=== PATIENT | female | born 1985 ===

== ENCOUNTER 2017-04-23 18:16 | Inpatient (IN) | payer MEDICAID ==
--- NOTE | 2017-04-23 18:52 | ED PDOC ---
HPI: Psych/Substance Abuse Time Seen by Provider: 04/23/17 18:30 Chief Complaint (Nursing): Psychiatric Evaluation Chief Complaint (Provider): Psychiatric evaluation History Per: Patient History/Exam Limitations: no limitations Onset/Duration Of Symptoms: Days (x2 weeks) Current Symptoms Are (Timing): Still Present Suicide/Self Injury Attempted (Context): None Pain Scale Rating Of: 0 Associated Symptoms: Depression, Suicidal Thoughts, Suicidal Plan (jump in front of bus, as well as turning on the gas in house) Additional Complaint(s): Etta Culver is a 31 year old female, with no past medical history, who presents to the emergency department complaining of felling depressed, states she doesn't want to live anymore and planned to jump in front of bus as well as turning on the gas in the house. Symptoms of depression have been ongoing for the past x2 weeks. No signs of a triggering event. No further medical complaints. PMD: None provided. Past Medical History Reviewed: Historical Data, Nursing Documentation, Vital Signs Vital Signs: Last Vital Signs Temp 98.0 F 04/23/17 18:21 Pulse 112 H 04/23/17 18:21 Resp 16 04/23/17 18:21 BP 146/104 H 04/23/17 18:21 Pulse Ox 100 04/23/17 18:21 - Surgical History Other surgeries: gastric bypass - Family History Family History: States: Unknown Family Hx - Social History Current smoker - smoking cessation education provided: No Alcohol: None Drugs: Denies - Allergies Allergies/Adverse Reactions: Allergies Allergy/AdvReac Type Severity Reaction Status Date / Time No Known Allergies Allergy Verified 04/23/17 18:21 Review of Systems ROS Statement: Except As Marked, All Systems Reviewed And Found Negative Psych: Positive for: Depression, Suicidal ideation. Negative for: Other ( homicidal ideation) Physical Exam - Reviewed Nursing Documentation Reviewed: Yes Vital Signs Reviewed: Yes - Physical Exam Appears: Positive for: Non-toxic, No Acute Distress Head Exam: Positive for: ATRAUMATIC, NORMAL INSPECTION Skin: Positive for: Normal Color, Warm, Dry Eye Exam: Positive for: Normal appearance, EOMI, PERRL Neck: Positive for: Normal, Painless ROM, Supple Cardiovascular/Chest: Positive for: Regular Rate, Rhythm. Negative for: Murmur Respiratory: Positive for: Normal Breath Sounds. Negative for: Respiratory Distress Gastrointestinal/Abdominal: Positive for: Normal Exam, Soft. Negative for: Tenderness, Guarding, Rebound Extremity: Positive for: Normal ROM. Negative for: Deformity, Swelling Neurologic/Psych: Positive for: Alert, Oriented - ECG O2 Sat by Pulse Oximetry: 100 (RA) Pulse Ox Interpretation: Normal Medical Decision Making Medical Decision Making: Initial Plan: --EKG --Alcohol Serum --Comp Metabolic Panel --Drug screen, urine --Urine --Urine dipstick --CBC w/ differential --Chest portable [RAD] --1:1 Obs for suicide precaution --reevaluation Scribe Attestation: Documented by Rajiv Paz, acting as a scribe for Jeremy Alexandre MD Provider Scribe Attestation: All medical record entries made by the Scribe were at my direction and personally dictated by me. I have reviewed the chart and agree that the record accurately reflects my personal performance of the history, physical exam, medical decision making, and the department course for this patient. I have also personally directed, reviewed, and agree with the discharge instructions and disposition. Disposition - Clinical Impression Clinical Impression: Depression - Patient ED Disposition Is Patient to be Admitted: Transfer of Care - Disposition Disposition: Transfer of Care Disposition Time: 19:05 Condition: FAIR Forms: [email or web address] (Georgian) Patient Signed Over To: Edil Paulino III
--- NOTE | 2017-04-23 19:11 | ED PDOC ---
- Laboratory Results Result Diagrams: 04/23/17 19:06 04/23/17 19:06 - ECG O2 Sat by Pulse Oximetry: 100 (RA) Medical Decision Making Medical Decision Makin:00 --Patient endorsed to me by Dr. Alexandre, pending blood work and reevaluation for disposition labs reviewed revealing profound hypokalemia, which likely explains EKG findings and prolonged QTc Cipro cancelled as it can prolong QTc. Dose Ancef IV ordered for UTI. Magnesium 1.9, within normal limits. Potassium replacement initiated orally but pt refuses to take pills, states causes nausea/vomiting. LR bolus ordered, K+ 20meq IV over several hours. Admit Dr Morrell, d/w Julian Schultz for admission Julian Schultz in ED 830p Care transferred Repeat EKG 20:44 QTC 573, improved but remains prolonged Disposition - Clinical Impression Clinical Impression: Depression, Acute electrocardiogram changes, Hypokalemia - POA Present On Arrival: None - Disposition Disposition: Admitted as In-Patient Disposition Time: 20:10 Condition: FAIR Forms: [employer] (Mongolian)
[2017-04-23 19:16] LABS: BASO # 0.1 K/uL (0.0-0.2); BASO % 0.8 % (0.0-2.0); EOS % 0.1 % (0.0-4.0); HEMATOCRIT 44.3 % (34.0-47.0); LYMPH # 2.3 K/uL (1.0-4.3); LYMPH % 15.9 % (20.0-40.0); MEAN CELL VOLUME 80.4 fl (81.0-99.0); MEAN CORPUSCULAR HEMOGLOBIN 26.8 pg (27.0-31.0); MEAN CORPUSCULAR HGB CONC 33.3 g/dL (33.0-37.0); MEAN PLATELET VOLUME 8.9 fl (7.2-11.7); MONO % 6.8 % (0.0-10.0); NEUT % 76.4 % (50.0-75.0); NRBC % 0.3 % (0.0-0.0); RED CELL DISTRIBUTION WIDTH 13.6 % (11.5-14.5); WHITE BLOOD COUNT 14.5 K/uL (4.8-10.8)
[2017-04-23] MEDS ORDERED: Ciprofloxacin 400mg/200ml D5W 400 MG/200 ML BAG IVPB ONE (19:39)
[2017-04-23] MEDS: Ciprofloxacin 400mg/200ml D5W 400 MG/200 ML BAG IVPB STA ×2 (19:41→20:11)
[2017-04-23 19:44] LABS: ALB/GLOB RATIO 1.4 (1.0-2.1); ALCOHOL SERUM < 10 mg/dl (0-10); ALKALINE PHOSPHATASE 67 U/L (38-126); ALT/SGPT 53 U/L (9-52); AST/SGOT 33 U/L (14-36); BILIRUBIN,TOTAL 0.7 mg/dl (0.2-1.3); BLOOD UREA NITROGEN 7 mg/dl (7-17); CALCIUM 10.4 mg/dL (8.4-10.2); CARBON DIOXIDE 28 mmol/L (22-30); CHLORIDE 91 mmol/L (98-107); GFR AFRICAN-AMERICAN > 60; GLUCOSE,RANDOM 133 mg/dL (65-105); POTASSIUM 2.3 MMOL/L (3.6-5.0); SODIUM 136 mmol/l (132-148); TOTAL PROTEIN 7.8 G/DL (6.3-8.2)
[2017-04-23 19:45] LABS: MAGNESIUM 1.9 MG/DL (1.6-2.3); PHOSPHOROUS 2.9 mg/dl (2.5-4.5)
[2017-04-23] MEDS ORDERED: Potassium Chloride 20 mEq ER Tab PO ONE (19:46)
[2017-04-23] MEDS ORDERED: Lactated Ringer's 1,000 ML IV SCH (20:15)
[2017-04-23] MEDS ORDERED: Potassium Chloride 20 mEq/15 ml LIQ UD PO ONE (20:17)
[2017-04-23] MEDS ORDERED: ceFAZolin IV 1 gm in Dextrose 1 GM/50 ML BAG IVPB ONE (20:19)
[2017-04-23] MEDS ORDERED: Potassium CL 10 MEQ/50 ML 50 ML ONE ×2 (20:21→21:46)
[2017-04-23] MEDS: Potassium CL 10 MEQ/50 ML 50 ML IVPB SCH ×2 (20:33→21:49)
--- NOTE | 2017-04-23 21:03 | CP.PCM.HP ---
History of Present Illness - History of Present Illness History of Present Illness: pt admitted for prolonged qtc, hypokalemia, depression w/ SI. states has been vomiting on/off since having gastric bypass summer 2016. this episode lasted 1- 2 wks and at first pt was able to mela liquid but not any longer. pt has become more depressed/anxious despite being on lexapro and xanax. at present w/ SI of "jumping in front of bus" pt is on 1:1 and is for inptpsych when med cleared. initial ekg w/ qtc 600s , repeat after kcl qtc 500s. no abd pain, but has n/v at present. Present on Admission - Present on Admission Any Indicators Present on Admission: No Review of Systems - Gastrointestinal Gastrointestinal: As Per HPI, Nausea, Vomiting - Psychiatric Psychiatric: As Per HPI, Anxiety, Depression, Suicidal Ideation Past Patient History - Past Social History Alcohol: None Drugs: Denies - CARDIAC Hx Cardiac Disorders: No Hx Hypertension: No - PULMONARY Hx Tuberculosis: No - NEUROLOGICAL HX Cerebrovascular Accident: No Hx Seizures: No - HEMATOLOGICAL/ONCOLOGICAL Hx Cancer: No Hx Human Immunodeficiency Virus (HIV): No - GENITOURINARY/GYNECOLOGICAL Hx Sexually Transmitted Disorders: No - PSYCHIATRIC Hx Substance Use: No - SURGICAL HISTORY Hx Gastric Bypass Surgery: Yes (11/16) Meds Allergies/Adverse Reactions: Allergies Allergy/AdvReac Type Severity Reaction Status Date / Time No Known Allergies Allergy Verified 04/23/17 18:21 Physical Exam - Constitutional Appears: Well, Non-toxic, No Acute Distress - Head Exam Head Exam: ATRAUMATIC, NORMAL INSPECTION, NORMOCEPHALIC - Eye Exam Eye Exam: EOMI, Normal appearance, PERRL Pupil Exam: NORMAL ACCOMODATION, PERRL - ENT Exam ENT Exam: Mucous Membranes Moist, Normal Exam - Neck Exam Neck exam: Positive for: Normal Inspection - Respiratory Exam Respiratory Exam: Clear to Auscultation Bilateral, NORMAL BREATHING PATTERN - Cardiovascular Exam Cardiovascular Exam: REGULAR RHYTHM, RRR, +S1, +S2 - GI/Abdominal Exam GI & Abdominal Exam: Normal Bowel Sounds, Soft. absent: Tenderness - Extremities Exam Extremities exam: Positive for: full ROM, normal capillary refill, normal inspection, pedal pulses present - Back Exam Back exam: NORMAL INSPECTION - Neurological Exam Neurological exam: Alert, CN II-XII Intact, Normal Gait, Oriented x3, Reflexes Normal - Psychiatric Exam Psychiatric exam: Normal Affect, Normal Mood - Skin Skin Exam: Dry, Intact, Normal Color, Warm Results - Vital Signs Recent Vital Signs: Last Vital Signs Temp 98.0 F 04/23/17 18:21 Pulse 97 H 04/23/17 19:42 Resp 20 04/23/17 19:42 BP 139/81 04/23/17 19:42 Pulse Ox 100 04/23/17 20:52 - Labs Result Diagrams: 04/23/17 19:06 04/23/17 19:06 Labs: Laboratory Results - last 24 hr 04/23/17 04/23/17 04/23/17 18:45 19:06 19:06 WBC 14.5 H RBC 5.51 H Hgb 14.8 Hct 44.3 MCV 80.4 L MCH 26.8 L MCHC 33.3 RDW 13.6 Plt Count 306 MPV 8.9 Neut % (Auto) 76.4 H Lymph % (Auto) 15.9 L [place] % (Auto) 6.8 Eos % (Auto) 0.1 Baso % (Auto) 0.8 Neut # 11.0 H Lymph # 2.3 [place] # 1.0 H Eos # 0.0 Baso # 0.1 Sodium 136 Potassium 2.3 L* Chloride 91 L Carbon Dioxide 28 Anion Gap 19 BUN 7 Creatinine 0.7 Est GFR ( Amer) > 60 Est GFR (Non-Af Amer) > 60 Random Glucose 133 H Calcium 10.4 H Phosphorus Magnesium Total Bilirubin 0.7 AST 33 ALT 53 H Alkaline Phosphatase 67 Troponin I 0.0240 Total Protein 7.8 Albumin 4.6 Globulin 3.2 Albumin/Globulin Ratio 1.4 Urine Opiates Screen Negative Urine Methadone Screen Negative Ur Barbiturates Screen Negative Ur Phencyclidine Scrn Negative Ur Amphetamines Screen Negative U Benzodiazepines Scrn Positive U Oth Cocaine Metabols Negative U Cannabinoids Screen Negative Alcohol, Quantitative < 10 04/23/17 19:20 WBC RBC Hgb Hct MCV MCH MCHC RDW Plt Count MPV Neut % (Auto) Lymph % (Auto) [place] % (Auto) Eos % (Auto) Baso % (Auto) Neut # Lymph # [place] # Eos # Baso # Sodium Potassium Chloride Carbon Dioxide Anion Gap BUN Creatinine Est GFR ( Amer) Est GFR (Non-Af Amer) Random Glucose Calcium Phosphorus 2.9 Magnesium 1.9 Total Bilirubin AST ALT Alkaline Phosphatase Troponin I Total Protein Albumin Globulin Albumin/Globulin Ratio Urine Opiates Screen Urine Methadone Screen Ur Barbiturates Screen Ur Phencyclidine Scrn Ur Amphetamines Screen U Benzodiazepines Scrn U Oth Cocaine Metabols U Cannabinoids Screen Alcohol, Quantitative Assessment & Plan (1) DVT prophylaxis Assessment and Plan: scd and ae hose ambulation Status: Acute (2) Acute electrocardiogram changes Assessment and Plan: normalizign w/ kcl. repeat in am cardio likely r/t hypokalemia from n/v Status: Acute (3) Depression Assessment and Plan: ?? r/t hypokalemia/electrolyte imbalance cont home meds psych inpt admission when med cleared Status: Acute (4) Hypokalemia Assessment and Plan: given kcl and lr in er. cont lr @ 100. recheck cmp in am Status: Acute (5) Nausea & vomiting Assessment and Plan: zofran, pepcid cld adv as mela ivf Status: Acute Decision To Admit - Pt Status Changed To: Hospital Disposition Of: Inpatient - Admit Certification Admit to Inpatient:: After my assessment, the patient will require hospitalization for at least two midnights. This is because of the severity of symptoms shown, intensity of services needed, and/or the medical risk in this patient being treated as an outpatient. - . Bed Request Type: Telemetry Admitting Physician: Maida Morrell
[2017-04-23] MEDS: Lactated Ringer's 1,000 ML IV SCH (21:26)
[2017-04-24] MEDS: ceFAZolin IV 1 gm in Dextrose 1 GM/50 ML BAG IVPB SCH ×2 (00:41→09:55)
[2017-04-24 06:41] LABS: BASO % 0.4 % (0.0-2.0); EOS # 0.1 K/uL (0.0-0.7); EOS % 1.1 % (0.0-4.0); HEMATOCRIT 39.6 % (34.0-47.0); LYMPH # 2.1 K/uL (1.0-4.3); LYMPH % 20.8 % (20.0-40.0); MEAN CELL VOLUME 80.6 fl (81.0-99.0); MEAN CORPUSCULAR HGB CONC 33.5 g/dL (33.0-37.0); MONO # 0.7 K/uL (0.0-0.8); MONO % 7.4 % (0.0-10.0); NEUT % 70.3 % (50.0-75.0); NRBC % 0.3 % (0.0-0.0); RED CELL DISTRIBUTION WIDTH 13.6 % (11.5-14.5); WHITE BLOOD COUNT 9.9 K/uL (4.8-10.8)
[2017-04-24 07:12] LABS: ALB/GLOB RATIO 1.4 (1.0-2.1); ALKALINE PHOSPHATASE 52 U/L (38-126); ALT/SGPT 47 U/L (9-52); AST/SGOT 28 U/L (14-36); BILIRUBIN,TOTAL 0.7 mg/dl (0.2-1.3); BLOOD UREA NITROGEN 7 mg/dl (7-17); CALCIUM 9.6 mg/dL (8.4-10.2); CARBON DIOXIDE 34 mmol/L (22-30); CHLORIDE 92 mmol/L (98-107); GFR AFRICAN-AMERICAN > 60; GLUCOSE,RANDOM 104 mg/dL (65-105); POTASSIUM 2.5 MMOL/L (3.6-5.0); SODIUM 137 mmol/l (132-148); TOTAL PROTEIN 6.4 G/DL (6.3-8.2)
[2017-04-24] MEDS: Potassium CL 10 MEQ/50 ML 50 ML IVPB SCH ×6 (08:23→21:48)
[2017-04-24] MEDS: Lactated Ringer's 1,000 ML IV SCH ×2 (08:35→16:54)
--- NOTE | 2017-04-24 09:18 | RAD ---
HISTORY: psych clearance COMPARISON: No prior. FINDINGS: LUNGS: No active pulmonary disease. PLEURA: No significant pleural effusion identified, no pneumothorax apparent. CARDIOVASCULAR: Normal. OSSEOUS STRUCTURES: No significant abnormalities. VISUALIZED UPPER ABDOMEN: Normal. OTHER FINDINGS: None. IMPRESSION: No active disease.
--- NOTE | 2017-04-24 11:03 | CP.PCM.PN ---
Subjective - Date & Time of Evaluation Date of Evaluation: 04/24/17 Time of Evaluation: 11:01 - Subjective Subjective: doign well, no f/c, diarrhea. no pain. depression remains, still on 1:1 pending psych eval k 2.5 this am, 2x kcl runs ordered. rechekc 1600 cardio consult pending echo completed still w/ n/v, mela small amt of the cld Objective - Vital Signs/Intake and Output Vital Signs (last 24 hours): Temp Pulse Resp BP Pulse Ox 98.3 F 81 20 129/61 94 L 04/24/17 08:08 04/24/17 08:08 04/24/17 08:08 04/24/17 08:08 04/24/17 08:08 - Medications Medications: Current Medications Alprazolam (Xanax) 0.5 mg PO BID PRN PRN Reason: Anxiety Escitalopram Oxalate (Lexapro) 10 mg PO DAILY [facility] Last Admin: 04/24/17 08:18 Dose: 10 mg Famotidine (Pepcid) 20 mg IVP Q12 [facility] Last Admin: 04/24/17 08:23 Dose: 20 mg Cefazolin Sodium/Dextrose (Ancef Iv 1 Gm Duplex) 1 gm in 50 mls @ 50 mls/hr IVPB Q12 [facility]Y PRN Reason: Protocol Last Admin: 04/24/17 09:55 Dose: 50 mls/hr Lactated Ringer's (Lactated Ringer's) 1,000 mls @ 100 mls/hr IV .Q10H [facility] Last Admin: 04/24/17 08:35 Dose: 100 mls/hr Ondansetron HCl (Zofran Inj) 4 mg IVP Q6 PRN PRN Reason: Nausea/Vomiting Last Admin: 04/23/17 21:23 Dose: 4 mg - Labs Labs: 04/24/17 05:30 04/24/17 05:30 - Constitutional Appears: Well, Non-toxic, No Acute Distress - Head Exam Head Exam: ATRAUMATIC, NORMAL INSPECTION, NORMOCEPHALIC - Eye Exam Eye Exam: EOMI, Normal appearance, PERRL Pupil Exam: NORMAL ACCOMODATION, PERRL - ENT Exam ENT Exam: Mucous Membranes Moist, Normal Exam - Neck Exam Neck Exam: Full ROM, Normal Inspection. absent: Lymphadenopathy - Respiratory Exam Respiratory Exam: Clear to Ausculation Bilateral, NORMAL BREATHING PATTERN - Cardiovascular Exam Cardiovascular Exam: REGULAR RHYTHM, RRR, +S1, +S2. absent: Murmur - GI/Abdominal Exam GI & Abdominal Exam: Soft, Normal Bowel Sounds. absent: Tenderness - Extremities Exam Extremities Exam: Full ROM, Normal Capillary Refill, Normal Inspection. absent : Joint Swelling, Pedal Edema - Back Exam Back Exam: NORMAL INSPECTION - Neurological Exam Neurological Exam: Alert, Awake, CN II-XII Intact, Normal Gait, Oriented x3 - Psychiatric Exam Psychiatric exam: Normal Affect, Normal Mood - Skin Skin Exam: Dry, Intact, Normal Color, Warm Assessment and Plan (1) DVT prophylaxis Status: Acute (2) Acute electrocardiogram changes Status: Acute (3) Depression Status: Acute (4) Hypokalemia Status: Acute (5) Nausea & vomiting Status: Acute (6) UTI (urinary tract infection) Status: Acute - Assessment and Plan (Free Text) Assessment: (1) DVT prophylaxis Assessment and Plan: scd and ae hose ambulation Status: Acute (2) Acute electrocardiogram changes Assessment and Plan: normalizign w/ kcl. repeat in am cardio likely r/t hypokalemia from n/v echo Status: Acute (3) Depression Assessment and Plan: ?? r/t hypokalemia/electrolyte imbalance cont home meds psych inpt admission when med cleared Status: Acute (4) Hypokalemia Assessment and Plan: given kcl and lr in er. cont lr @ 100. recheck bmp 1600 kcl x 2 now Status: Acute (5) Nausea & vomiting Assessment and Plan: zofran, pepcid cld adv as mela ivf Status: Acute 6-uti-ancef
--- NOTE | 2017-04-24 11:22 | CP.PCM.CON ---
History of Present Illness - History of Present Illness History of Present Illness: Psychiatry consult note CC: "I'm depressed." HPI: 31 yo female BIB mother due to active suicidal ideation to jump out of the window or turn the gas on in her house when no one is home. She denies current ideation to harm herself, but continues to report severe depression and anxiety. She reports that she has panic attacks for which she was prescribed Xanax. She started Lexapro 3 days ago. +sleep/appetite disturbances +anhedonia +hopelessness. +low self esteem. She was admitted to the medicine unit for prolonged QTC and hypokalemia. She is agreeable to voluntary psychiatric admission at this time. In the ER: CW (JAY) spoke to pt's mother Shauna Roberts [phone] to obtain collateral information. As per pt.'s, mother, pt has been expressing active SI with a plan with to "jump out the window" and/or "turn on the gas." Pt's mother reported that pt has two children and she wants pt to get the help that she needs to improve her depression. Pt's mother stated that pt recently saw a therapist and she is scheduled to see a psychiatrist within two weeks. PMHx: H/o gastric bypass PPHx: She recently initiated psychiatric treatment at [facility] in [place], [place]; on Lexapro 10 mg PO Daily and Xanax PRN SHx: Completed 12th grade, some college; lives in an apt w/ her children. Denies drugs/etoh/cig. MSE: A + O x 3, calm, cooperative, good eye contact, thought process-linear/ coherent, thought content- no delusions, mood/affect- depressed, no AH/VH/ paranoia, denies current SI, but endorses recent ideation, no HI; fair I/J Impression; 31 yo female w/ major depressive disorder would benefit from inpatient psychiatric admission when she is medically stable. -Continue Lexapro 10 mg PO Daily -Stop Xanax, Start Clonazepam 0.25 mg PO q12 hr -Transfer to 3NP when she is medically stable Past Patient History - Past Medical History & Family History Past Medical History?: No - Past Social History Smoking Status: Never Smoked - CARDIAC Hx Cardiac Disorders: No - PULMONARY Hx Tuberculosis: No - NEUROLOGICAL HX Cerebrovascular Accident: No Hx Seizures: No - HEMATOLOGICAL/ONCOLOGICAL Hx AIDS: No Hx Human Immunodeficiency Virus (HIV): No - MUSCULOSKELETAL/RHEUMATOLOGICAL Hx Falls: No - GENITOURINARY/GYNECOLOGICAL Hx Sexually Transmitted Disorders: No - PSYCHIATRIC Hx Substance Use: No - SURGICAL HISTORY Hx Surgeries: Yes Hx Gastric Bypass Surgery: Yes (11/16) - ANESTHESIA Hx Anesthesia: Yes Hx Anesthesia Reactions: No Hx Malignant Hyperthermia: No Meds Allergies/Adverse Reactions: Allergies Allergy/AdvReac Type Severity Reaction Status Date / Time No Known Allergies Allergy Verified 04/23/17 18:21 - Medications Medications: Current Medications Alprazolam (Xanax) 0.5 mg PO BID PRN PRN Reason: Anxiety Escitalopram Oxalate (Lexapro) 10 mg PO DAILY [facility] Last Admin: 04/24/17 08:18 Dose: 10 mg Famotidine (Pepcid) 20 mg IVP Q12 TERRY Last Admin: 04/24/17 08:23 Dose: 20 mg Cefazolin Sodium/Dextrose (Ancef Iv 1 Gm Duplex) 1 gm in 50 mls @ 50 mls/hr IVPB Q12 TERRY PRN Reason: Protocol Last Admin: 04/24/17 09:55 Dose: 50 mls/hr Lactated Ringer's (Lactated Ringer's) 1,000 mls @ 100 mls/hr IV .Q10H [facility]ERRY Last Admin: 04/24/17 08:35 Dose: 100 mls/hr Ondansetron HCl (Zofran Inj) 4 mg IVP Q6 PRN PRN Reason: Nausea/Vomiting Last Admin: 04/23/17 21:23 Dose: 4 mg Results - Vital Signs Recent Vital Signs: Last Vital Signs Temp 98.3 F 04/24/17 08:08 Pulse 81 04/24/17 08:08 Resp 20 04/24/17 08:08 BP 129/61 04/24/17 08:08 Pulse Ox 94 L 04/24/17 08:08 - Labs Result Diagrams: 04/24/17 05:30 04/24/17 05:30 Labs: Laboratory Results - last 24 hr 04/23/17 04/23/17 04/23/17 18:45 19:06 19:06 WBC 14.5 H RBC 5.51 H Hgb 14.8 Hct 44.3 MCV 80.4 L MCH 26.8 L MCHC 33.3 RDW 13.6 Plt Count 306 MPV 8.9 Neut % (Auto) 76.4 H Lymph % (Auto) 15.9 L [place] % (Auto) 6.8 Eos % (Auto) 0.1 Baso % (Auto) 0.8 Neut # 11.0 H Lymph # 2.3 [place] # 1.0 H Eos # 0.0 Baso # 0.1 Sodium 136 Potassium 2.3 L* Chloride 91 L Carbon Dioxide 28 Anion Gap 19 BUN 7 Creatinine 0.7 Est GFR ( Amer) > 60 Est GFR (Non-Af Amer) > 60 Random Glucose 133 H Calcium 10.4 H Phosphorus Magnesium Total Bilirubin 0.7 AST 33 ALT 53 H Alkaline Phosphatase 67 Troponin I 0.0240 Total Protein 7.8 Albumin 4.6 Globulin 3.2 Albumin/Globulin Ratio 1.4 Urine Opiates Screen Negative Urine Methadone Screen Negative Ur Barbiturates Screen Negative Ur Phencyclidine Scrn Negative Ur Amphetamines Screen Negative U Benzodiazepines Scrn Positive U Oth Cocaine Metabols Negative U Cannabinoids Screen Negative Alcohol, Quantitative < 10 04/23/17 04/24/17 04/24/17 19:20 05:30 05:30 WBC 9.9 RBC 4.91 Hgb 13.2 Hct 39.6 MCV 80.6 L MCH 27.0 MCHC 33.5 RDW 13.6 Plt Count 302 MPV 8.0 Neut % (Auto) 70.3 Lymph % (Auto) 20.8 [place] % (Auto) 7.4 Eos % (Auto) 1.1 Baso % (Auto) 0.4 Neut # 7.0 Lymph # 2.1 [place] # 0.7 Eos # 0.1 Baso # 0.0 Sodium 137 Potassium 2.5 L* Chloride 92 L Carbon Dioxide 34 H Anion Gap 14 BUN 7 Creatinine 0.7 Est GFR ( Amer) > 60 Est GFR (Non-Af Amer) > 60 Random Glucose 104 Calcium 9.6 Phosphorus 2.9 Magnesium 1.9 Total Bilirubin 0.7 AST 28 ALT 47 Alkaline Phosphatase 52 Troponin I 0.0210 Total Protein 6.4 Albumin 3.7 Globulin 2.7 Albumin/Globulin Ratio 1.4 Urine Opiates Screen Urine Methadone Screen Ur Barbiturates Screen Ur Phencyclidine Scrn Ur Amphetamines Screen U Benzodiazepines Scrn U Oth Cocaine Metabols U Cannabinoids Screen Alcohol, Quantitative
--- NOTE | 2017-04-24 14:25 | CP.PCM.CON ---
History of Present Illness - History of Present Illness History of Present Illness: patietn seen/examined. full consult to follow. prolonged QT may be due to hypokelemia. recommend aggresive repletion of K. avoid flouroquinolones. caution with psychiatric medications. will review echocardiogram Past Patient History - Past Medical History & Family History Past Medical History?: No - Past Social History Smoking Status: Never Smoked - CARDIAC Hx Cardiac Disorders: No - PULMONARY Hx Tuberculosis: No - NEUROLOGICAL HX Cerebrovascular Accident: No Hx Seizures: No - HEMATOLOGICAL/ONCOLOGICAL Hx AIDS: No Hx Human Immunodeficiency Virus (HIV): No - MUSCULOSKELETAL/RHEUMATOLOGICAL Hx Falls: No - GENITOURINARY/GYNECOLOGICAL Hx Sexually Transmitted Disorders: No - PSYCHIATRIC Hx Substance Use: No - SURGICAL HISTORY Hx Surgeries: Yes Hx Gastric Bypass Surgery: Yes (11/16) - ANESTHESIA Hx Anesthesia: Yes Hx Anesthesia Reactions: No Hx Malignant Hyperthermia: No Meds Allergies/Adverse Reactions: Allergies Allergy/AdvReac Type Severity Reaction Status Date / Time No Known Allergies Allergy Verified 04/23/17 18:21 - Medications Medications: Current Medications Alprazolam (Xanax) 0.5 mg PO BID PRN PRN Reason: Anxiety Escitalopram Oxalate (Lexapro) 10 mg PO DAILY [facility] Last Admin: 04/24/17 08:18 Dose: 10 mg Famotidine (Pepcid) 20 mg IVP Q12 [facility] Last Admin: 04/24/17 08:23 Dose: 20 mg Cefazolin Sodium/Dextrose (Ancef Iv 1 Gm Duplex) 1 gm in 50 mls @ 50 mls/hr IVPB Q12 TERRY PRN Reason: Protocol Last Admin: 04/24/17 09:55 Dose: 50 mls/hr Lactated Ringer's (Lactated Ringer's) 1,000 mls @ 100 mls/hr IV .Q10H [facility] Last Admin: 04/24/17 08:35 Dose: 100 mls/hr Ondansetron HCl (Zofran Inj) 4 mg IVP Q6 PRN PRN Reason: Nausea/Vomiting Last Admin: 04/23/17 21:23 Dose: 4 mg Results - Vital Signs Recent Vital Signs: Last Vital Signs Temp 97.7 F 04/24/17 13:00 Pulse 76 04/24/17 13:00 Resp 18 04/24/17 13:00 BP 136/89 04/24/17 13:00 Pulse Ox 100 04/24/17 13:00 - Labs Result Diagrams: 04/24/17 05:30 04/24/17 05:30 Labs: Laboratory Results - last 24 hr 04/23/17 04/23/17 04/23/17 18:45 19:06 19:06 WBC 14.5 H RBC 5.51 H Hgb 14.8 Hct 44.3 MCV 80.4 L MCH 26.8 L MCHC 33.3 RDW 13.6 Plt Count 306 MPV 8.9 Neut % (Auto) 76.4 H Lymph % (Auto) 15.9 L [place] % (Auto) 6.8 Eos % (Auto) 0.1 Baso % (Auto) 0.8 Neut # 11.0 H Lymph # 2.3 [place] # 1.0 H Eos # 0.0 Baso # 0.1 Sodium 136 Potassium 2.3 L* Chloride 91 L Carbon Dioxide 28 Anion Gap 19 BUN 7 Creatinine 0.7 Est GFR ( Amer) > 60 Est GFR (Non-Af Amer) > 60 Random Glucose 133 H Calcium 10.4 H Phosphorus Magnesium Total Bilirubin 0.7 AST 33 ALT 53 H Alkaline Phosphatase 67 Troponin I 0.0240 Total Protein 7.8 Albumin 4.6 Globulin 3.2 Albumin/Globulin Ratio 1.4 Urine Opiates Screen Negative Urine Methadone Screen Negative Ur Barbiturates Screen Negative Ur Phencyclidine Scrn Negative Ur Amphetamines Screen Negative U Benzodiazepines Scrn Positive U Oth Cocaine Metabols Negative U Cannabinoids Screen Negative Alcohol, Quantitative < 10 04/23/17 04/24/17 04/24/17 19:20 05:30 05:30 WBC 9.9 RBC 4.91 Hgb 13.2 Hct 39.6 MCV 80.6 L MCH 27.0 MCHC 33.5 RDW 13.6 Plt Count 302 MPV 8.0 Neut % (Auto) 70.3 Lymph % (Auto) 20.8 [place] % (Auto) 7.4 Eos % (Auto) 1.1 Baso % (Auto) 0.4 Neut # 7.0 Lymph # 2.1 [place] # 0.7 Eos # 0.1 Baso # 0.0 Sodium 137 Potassium 2.5 L* Chloride 92 L Carbon Dioxide 34 H Anion Gap 14 BUN 7 Creatinine 0.7 Est GFR ( Amer) > 60 Est GFR (Non-Af Amer) > 60 Random Glucose 104 Calcium 9.6 Phosphorus 2.9 Magnesium 1.9 Total Bilirubin 0.7 AST 28 ALT 47 Alkaline Phosphatase 52 Troponin I 0.0210 Total Protein 6.4 Albumin 3.7 Globulin 2.7 Albumin/Globulin Ratio 1.4 Urine Opiates Screen Urine Methadone Screen Ur Barbiturates Screen Ur Phencyclidine Scrn Ur Amphetamines Screen U Benzodiazepines Scrn U Oth Cocaine Metabols U Cannabinoids Screen Alcohol, Quantitative
--- NOTE | 2017-04-24 14:26 | CP.PCM.CON ---
History of Present Illness - History of Present Illness History of Present Illness: I was asked to see patient by Dr Morrell and Dr. Schultz. Patient is a 31 year old female with depression who presents with persistnet nausea and vomiting. She has had multiple episodes over the last week, and has had suicidal ideation. The patient was found to have hypokalemia. Shw as found to have prolonged QT on EKG. She denies chest pain palpitations or syncope. Review of Systems - Constitutional Constitutional: absent: As Per HPI, Anorexia, Chills, Daytime Sleepiness, Excessive Sweating, Fatigue, Fever, Frequent Falls, Headache, Increased Appetite , Lethargy, Malaise, Night Sweats, Snoring, Sleep Apnea, Weight Gain, Weight Loss, Weakness, Other - EENT Eyes: absent: As Per HPI, Blind Spots, Blurred Vision, Change in Vision, Decreased Night Vision, Diplopia, Discharge, Dry Eye, Exophthalmos, Floaters, Irritation, Itchy Eyes, Loss of Peripheral Vision, Pain, Photophobia, Requires Corrective Lenses, Sees Flashes, Spots in Vision, Tunnel Vision, Other Visual Disturbances, Loss of Vision, Other Ears: absent: As Per HPI, Decreased Hearing, Ear Discharge, Ear Pain, Tinnitus, Abnormal Hearing, Disequilibrium, Dizziness, Other Nose/Mouth/Throat: absent: As Per HPI, Epistaxis, Nasal Congestion, Nasal Discharge, Nasal Obstruction, Nasal Trauma, Nose Pain, Post Nasal Drip, Sinus Pain, Sinus Pressure, Bleeding Gums, Change in Voice, Dental Pain, Dry Mouth, Dysphagia, Halitosis, Hoarsness, Lip Swelling, Mouth Lesions, Mouth Pain, Odynophagia, Sore Throat, Throat Swelling, Tongue Swelling, Facial Pain, Neck Pain, Neck Mass, Other - Cardiovascular Cardiovascular: absent: As Per HPI, Acrocyanosis, Chest Pain, Chest Pain at Rest , Chest Pain with Activity, Claudication, Diaphoresis, Dyspnea, Dyspnea on Exertion, Edema, Irregular Heart Rhythm, Pain Radiating to Arm/Neck/Jaw, Leg Edema, Leg Ulcers, Lightheadedness, Orthopnea, Palpitations, Paroxysmal Nocturnal Dyspnea, Pedal Edema, Radiating Pain, Rapid Heart Rate, Slow Heart Rate, Syncope, Other - Respiratory Respiratory: absent: As Per HPI, Cough, Dyspnea, Hemoptysis, Dyspnea on Exertion , Wheezing, Snoring, Stridor, Pain on Inspiration, Chest Congestion, Excessive Mucous Production, Change in Mucous Color, Pain with Coughing, Other - Gastrointestinal Gastrointestinal: absent: As Per HPI, Abdominal Pain, Belching, Bloating, Change in Bowel Habits, Change in Stool Character, Coffee Ground Emesis, Constipation, Cramping, Diarrhea, Dyspepsia, Dysphagia, Early Satiety, Excessive Flatus, Fecal Incontinence, Heartburn, Hematemesis, Hematochezia, Loose Stools, Melena, Nausea, Odynophagia, Temesmus, Vomiting, Other - Genitourinary Genitourinary: absent: As Per HPI, Change in Urinary Stream, Difficulty Urinating, Dysuria, Flank Pain, Hematuria, Pyuria, Nocturia, Urinary Incontinence, Urinary Frequency, Urinary Hesitance, Urinary Urgency, Voiding Freq/Small Amts, Freq UTI, Hx Renal/Bladder Calculi, Hx /Renal Surgery, Bladder Distension, Other - Musculoskeletal Musculoskeletal: absent: As Per HPI, Abnormal Gait, Arthralgias, Atrophy, Back Pain, Deformity, Joint Swelling, Limited Range of Motion, Loss of Height, Muscle Cramps, Muscle Weakness, Myalgias, Neck Pain, Numbness, Radiating Pain into Limb, Stiffness, Tingling, Other - Integumentary Integumentary: absent: As Per HPI, Acne, Alopecia, Bleeding Lesions, Change in Hair, Change in Nails, Change in Pigmentation, Changing Lesions, Dry Skin, Erythema, Furuncle, Hirsutism, Lesions, New Lesions, Non-Healing Lesions, Photosensitivity, Pruritus, Rash, Skin Pain, Skin Ulcer, Sores, Striae, Swelling , Unusual Bruising, Wounds, Jaundice, Other - Neurological Neurological: absent: As Per HPI, Abnormal Gait, Abnormal Hearing, Abnormal Movements, Abnormal Speech, Behavioral Changes, Burning Sensations, Confusion, Convulsions, Disequilibrium, Dizziness, Numbness, Focal Weakness, Frequent Falls , Headaches, Lack of Coordination, Loss of Vision, Memory Loss, Paresthesias, Radicular Pain, Restless Legs, Sensory Deficit, Syncope, Tingling, Tremor, Vertigo, Weakness, Other Visual Disturbances, Other - Psychiatric Psychiatric: Depression, Suicidal Ideation - Endocrine Endocrine: absent: As Per HPI, Change in Body Appearance, Change in Libido, Cold Intolorance, Deepening of Voice, Excessive Sweating, Fatigue, Flushing, Heat Intolorance, Increase in Ring/Shoe/Hat Size, Palpitations, Polydipsia, Polyphagia, Polyuria, Other - Hematologic/Lymphatic Hematologic: absent: As Per HPI, Easy Bleeding, Easy Bruising, Lymphadenopathy, Other Past Patient History - Past Medical History & Family History Past Medical History?: No - Past Social History Smoking Status: Never Smoked - CARDIAC Hx Cardiac Disorders: No - PULMONARY Hx Tuberculosis: No - NEUROLOGICAL HX Cerebrovascular Accident: No Hx Seizures: No - HEMATOLOGICAL/ONCOLOGICAL Hx AIDS: No Hx Human Immunodeficiency Virus (HIV): No - MUSCULOSKELETAL/RHEUMATOLOGICAL Hx Falls: No - GENITOURINARY/GYNECOLOGICAL Hx Sexually Transmitted Disorders: No - PSYCHIATRIC Hx Substance Use: No - SURGICAL HISTORY Hx Surgeries: Yes Hx Gastric Bypass Surgery: Yes (11/16) - ANESTHESIA Hx Anesthesia: Yes Hx Anesthesia Reactions: No Hx Malignant Hyperthermia: No Meds Allergies/Adverse Reactions: Allergies Allergy/AdvReac Type Severity Reaction Status Date / Time No Known Allergies Allergy Verified 04/23/17 18:21 - Medications Medications: Current Medications Alprazolam (Xanax) 0.5 mg PO BID PRN PRN Reason: Anxiety Escitalopram Oxalate (Lexapro) 10 mg PO DAILY [facility] Last Admin: 04/24/17 08:18 Dose: 10 mg Famotidine (Pepcid) 20 mg IVP Q12 [facility] Last Admin: 04/24/17 08:23 Dose: 20 mg Cefazolin Sodium/Dextrose (Ancef Iv 1 Gm Duplex) 1 gm in 50 mls @ 50 mls/hr IVPB Q12 [facility] PRN Reason: Protocol Last Admin: 04/24/17 09:55 Dose: 50 mls/hr Lactated Ringer's (Lactated Ringer's) 1,000 mls @ 100 mls/hr IV .Q10H [facility] Last Admin: 04/24/17 08:35 Dose: 100 mls/hr Ondansetron HCl (Zofran Inj) 4 mg IVP Q6 PRN PRN Reason: Nausea/Vomiting Last Admin: 04/23/17 21:23 Dose: 4 mg Physical Exam - Constitutional Appears: Non-toxic - Head Exam Head Exam: NORMAL INSPECTION - Eye Exam Eye Exam: Normal appearance. absent: Conjunctival injection, Periorbital swelling, Periorbital tenderness - ENT Exam ENT Exam: Mucous Membranes Moist, Normal Oropharynx - Neck Exam Neck exam: Positive for: Full Rom. Negative for: Lymphadenopathy, Tenderness, Thyromegaly - Respiratory Exam Respiratory Exam: Clear to Auscultation Bilateral, NORMAL BREATHING PATTERN. absent: Rales, Rhonchi, Wheezes - Cardiovascular Exam Cardiovascular Exam: REGULAR RHYTHM, RRR. absent: Systolic Murmur - GI/Abdominal Exam GI & Abdominal Exam: Normal Bowel Sounds - Rectal Exam Rectal Exam: Deferred - Extremities Exam Extremities exam: Negative for: tenderness - Back Exam Back exam: NORMAL INSPECTION - Neurological Exam Neurological exam: Alert, Oriented x3 - Psychiatric Exam Psychiatric exam: Flat Affect - Skin Skin Exam: Normal Color Results - Vital Signs Recent Vital Signs: Last Vital Signs Temp 97.7 F 04/24/17 13:00 Pulse 76 04/24/17 13:00 Resp 18 04/24/17 13:00 BP 136/89 04/24/17 13:00 Pulse Ox 100 04/24/17 13:00 - Labs Result Diagrams: 04/27/17 04:20 04/27/17 04:20 Labs: Laboratory Results - last 24 hr 04/23/17 04/23/17 04/23/17 18:45 19:06 19:06 WBC 14.5 H RBC 5.51 H Hgb 14.8 Hct 44.3 MCV 80.4 L MCH 26.8 L MCHC 33.3 RDW 13.6 Plt Count 306 MPV 8.9 Neut % (Auto) 76.4 H Lymph % (Auto) 15.9 L Whitfield % (Auto) 6.8 Eos % (Auto) 0.1 Baso % (Auto) 0.8 Neut # 11.0 H Lymph # 2.3 Whitfield # 1.0 H Eos # 0.0 Baso # 0.1 Sodium 136 Potassium 2.3 L* Chloride 91 L Carbon Dioxide 28 Anion Gap 19 BUN 7 Creatinine 0.7 Est GFR ( Amer) > 60 Est GFR (Non-Af Amer) > 60 Random Glucose 133 H Calcium 10.4 H Phosphorus Magnesium Total Bilirubin 0.7 AST 33 ALT 53 H Alkaline Phosphatase 67 Troponin I 0.0240 Total Protein 7.8 Albumin 4.6 Globulin 3.2 Albumin/Globulin Ratio 1.4 Urine Opiates Screen Negative Urine Methadone Screen Negative Ur Barbiturates Screen Negative Ur Phencyclidine Scrn Negative Ur Amphetamines Screen Negative U Benzodiazepines Scrn Positive U Oth Cocaine Metabols Negative U Cannabinoids Screen Negative Alcohol, Quantitative < 10 12/22/17 12/23/17 12/23/17 19:20 05:30 05:30 WBC 9.9 RBC 4.91 Hgb 13.2 Hct 39.6 MCV 80.6 L MCH 27.0 MCHC 33.5 RDW 13.6 Plt Count 302 MPV 8.0 Neut % (Auto) 70.3 Lymph % (Auto) 20.8 Whitfield % (Auto) 7.4 Eos % (Auto) 1.1 Baso % (Auto) 0.4 Neut # 7.0 Lymph # 2.1 Whitfield # 0.7 Eos # 0.1 Baso # 0.0 Sodium 137 Potassium 2.5 L* Chloride 92 L Carbon Dioxide 34 H Anion Gap 14 BUN 7 Creatinine 0.7 Est GFR ( Amer) > 60 Est GFR (Non-Af Amer) > 60 Random Glucose 104 Calcium 9.6 Phosphorus 2.9 Magnesium 1.9 Total Bilirubin 0.7 AST 28 ALT 47 Alkaline Phosphatase 52 Troponin I 0.0210 Total Protein 6.4 Albumin 3.7 Globulin 2.7 Albumin/Globulin Ratio 1.4 Urine Opiates Screen Urine Methadone Screen Ur Barbiturates Screen Ur Phencyclidine Scrn Ur Amphetamines Screen U Benzodiazepines Scrn U Oth Cocaine Metabols U Cannabinoids Screen Alcohol, Quantitative - EKG Data EKG Interpreted by: Myself EKG shows normal: Sinus rhythm, Intervals Assessment & Plan (1) Hypokalemia Assessment and Plan: replete potassium Status: Acute (2) Prolonged QT interval Assessment and Plan: likely due to hypokalemia. will continued current medical therapy and monitor on telemetry. check echocardiogram Status: Acute
[2017-04-24 16:46] LABS: BLOOD UREA NITROGEN 5 mg/dl (7-17); CALCIUM 8.9 mg/dL (8.4-10.2); CARBON DIOXIDE 32 mmol/L (22-30); CHLORIDE 91 mmol/L (98-107); GFR AFRICAN-AMERICAN > 60; GLUCOSE,RANDOM 102 mg/dL (65-105); SODIUM 134 mmol/l (132-148)
[2017-04-24] MEDS: Potassium Chloride 20 MEQ in Lactated Ringer's 1,000 ML IV SCH (18:43)
[2017-04-25] MEDS: Potassium Chloride 20 MEQ in Lactated Ringer's 1,000 ML IV SCH ×2 (05:40→16:14)
--- NOTE | 2017-04-25 06:59 | CP.PCM.PN ---
Subjective - Date & Time of Evaluation Date of Evaluation: 04/25/17 Time of Evaluation: 06:55 - Subjective Subjective: patient asleep. telemetry reviewed. no arrhythmia. echocardiogram reveals normal left ventricular function, and no evidence of valvular dysfunction or structural hear disease. Plan: needs correction of potassium. avoid QT prolonging medications Objective - Vital Signs/Intake and Output Vital Signs (last 24 hours): Temp Pulse Resp BP Pulse Ox 98.4 F 84 20 145/91 H 99 04/25/17 05:18 04/25/17 05:18 04/25/17 05:18 04/25/17 05:18 04/25/17 05:18 Intake and Output: 04/24/17 04/25/17 18:59 06:59 Intake Total 1900 Balance 1900 - Medications Medications: Current Medications Alprazolam (Xanax) 0.5 mg PO BID PRN PRN Reason: Anxiety Last Admin: 04/24/17 22:47 Dose: 0.5 mg Escitalopram Oxalate (Lexapro) 10 mg PO DAILY [facility] Last Admin: 04/24/17 08:18 Dose: 10 mg Famotidine (Pepcid) 20 mg IVP Q12 [facility] Last Admin: 04/24/17 21:50 Dose: 20 mg Cefazolin Sodium/Dextrose (Ancef Iv 1 Gm Duplex) 1 gm in 50 mls @ 50 mls/hr IVPB Q12 [facility] PRN Reason: Protocol Last Admin: 04/24/17 09:55 Dose: 50 mls/hr Lactated Ringer's (Lactated Ringer's) 1,000 mls @ 100 mls/hr IV .Q10H [facility] Last Admin: 04/24/17 16:54 Dose: 100 mls/hr Potassium Chloride 20 meq/ (Lactated Ringer's) 1,010 mls @ 100 mls/hr IV .Q10H6M [facility] Stop: 04/25/17 18:26 Last Admin: 04/25/17 05:40 Dose: 100 mls/hr Ondansetron HCl (Zofran Inj) 4 mg IVP Q6 PRN PRN Reason: Nausea/Vomiting Last Admin: 04/23/17 21:23 Dose: 4 mg - Labs Labs: 04/24/17 05:30 04/24/17 17:40
[2017-04-25 08:08] LABS: HEMATOCRIT 37.6 % (34.0-47.0); MEAN CELL VOLUME 80.6 fl (81.0-99.0); MEAN CORPUSCULAR HGB CONC 33.4 g/dL (33.0-37.0); RED CELL DISTRIBUTION WIDTH 13.7 % (11.5-14.5); WHITE BLOOD COUNT 7.3 K/uL (4.8-10.8)
[2017-04-25] MEDS: ceFAZolin IV 1 gm in Dextrose 1 GM/50 ML BAG IVPB SCH ×2 (08:33→21:36)
[2017-04-25 09:31] LABS: BLOOD UREA NITROGEN 4 mg/dl (7-17); CALCIUM 8.5 mg/dL (8.4-10.2); CARBON DIOXIDE 37 mmol/L (22-30); CHLORIDE 89 mmol/L (98-107); GFR AFRICAN-AMERICAN > 60; GLUCOSE,RANDOM 95 mg/dL (65-105); POTASSIUM 2.6 MMOL/L (3.6-5.0); SODIUM 134 mmol/l (132-148)
--- NOTE | 2017-04-25 09:38 | CP.PCM.PN ---
Subjective - Date & Time of Evaluation Date of Evaluation: 04/25/17 Time of Evaluation: 09:37 - Subjective Subjective: pt calm and cooperative. no f/c, n/v/d. 1:1 at bedside. k 2.6 this am. no abd pain. no muscle cramps. nsr on tele. Objective - Vital Signs/Intake and Output Vital Signs (last 24 hours): Temp Pulse Resp BP Pulse Ox 98.1 F 82 18 137/82 99 04/25/17 08:13 04/25/17 08:13 04/25/17 08:13 04/25/17 08:13 04/25/17 08:13 Intake and Output: 04/25/17 04/25/17 06:59 18:59 Intake Total 1900 Balance 1900 - Medications Medications: Current Medications Alprazolam (Xanax) 0.5 mg PO BID PRN PRN Reason: Anxiety Last Admin: 04/24/17 22:47 Dose: 0.5 mg Escitalopram Oxalate (Lexapro) 10 mg PO DAILY [facility] Last Admin: 04/25/17 08:32 Dose: 10 mg Famotidine (Pepcid) 20 mg IVP Q12 [facility] Last Admin: 04/25/17 08:32 Dose: 20 mg Cefazolin Sodium/Dextrose (Ancef Iv 1 Gm Duplex) 1 gm in 50 mls @ 50 mls/hr IVPB Q12 [facility] PRN Reason: Protocol Last Admin: 04/25/17 08:33 Dose: 50 mls/hr Potassium Chloride 20 meq/ (Lactated Ringer's) 1,010 mls @ 100 mls/hr IV .Q10H6M [facility] Stop: 04/25/17 18:26 Last Admin: 04/25/17 05:40 Dose: 100 mls/hr Potassium Chloride (Potassium Chloride 10 Meq/100 Ml) 100 mls @ 100 mls/hr IVPB Q1 [facility] Stop: 04/25/17 13:59 Ondansetron HCl (Zofran Inj) 4 mg IVP Q6 PRN PRN Reason: Nausea/Vomiting Last Admin: 04/25/17 08:33 Dose: 4 mg - Labs Labs: 04/25/17 07:10 04/25/17 07:10 - Constitutional Appears: Well, Non-toxic, No Acute Distress - Head Exam Head Exam: ATRAUMATIC, NORMAL INSPECTION, NORMOCEPHALIC - Eye Exam Eye Exam: EOMI, Normal appearance, PERRL Pupil Exam: NORMAL ACCOMODATION, PERRL - ENT Exam ENT Exam: Mucous Membranes Moist, Normal Exam - Neck Exam Neck Exam: Full ROM, Normal Inspection. absent: Lymphadenopathy - Respiratory Exam Respiratory Exam: Clear to Ausculation Bilateral, NORMAL BREATHING PATTERN - Cardiovascular Exam Cardiovascular Exam: REGULAR RHYTHM, RRR, +S1, +S2. absent: Murmur - GI/Abdominal Exam GI & Abdominal Exam: Soft, Normal Bowel Sounds. absent: Tenderness - Extremities Exam Extremities Exam: Full ROM, Normal Capillary Refill, Normal Inspection. absent : Joint Swelling, Pedal Edema - Back Exam Back Exam: NORMAL INSPECTION - Neurological Exam Neurological Exam: Alert, Awake, CN II-XII Intact, Normal Gait, Oriented x3 - Psychiatric Exam Psychiatric exam: Normal Affect, Normal Mood - Skin Skin Exam: Dry, Intact, Normal Color, Warm Assessment and Plan (1) DVT prophylaxis Status: Acute (2) Acute electrocardiogram changes Status: Acute (3) Depression Status: Acute (4) Hypokalemia Status: Acute (5) Nausea & vomiting Status: Acute (6) UTI (urinary tract infection) Status: Acute - Assessment and Plan (Free Text) Assessment: (1) DVT prophylaxis Assessment and Plan: scd and ae hose ambulation Status: Acute (2) Acute electrocardiogram changes Assessment and Plan: normalizign w/ kcl. repeat in am cardio likely r/t hypokalemia from n/v echo Status: Acute (3) Depression Assessment and Plan: ?? r/t hypokalemia/electrolyte imbalance cont home meds psych inpt admission when med cleared Status: Acute (4) Hypokalemia Assessment and Plan: given kcl and lr in er. cont lr @ 100. recheck bmp 1600 kcl x 4 now k 2.6 this am Status: Acute (5) Nausea & vomiting Assessment and Plan: zofran, pepcid cld adv as mela ivf Status: Acute [id number]-ancef
--- NOTE | 2017-04-25 09:47 | CARD ---
APPROVED REPORT EXAM: Two-dimensional and M-mode echocardiogram with Doppler and color Doppler. Other Information Quality : GoodRhythm : NSR INDICATION Abnormal EKG/Arrhythmia 2D DIMENSIONS IVSd1.02 (0.7-1.1cm)Aortic Root (2D)2.47 (2.0-3.7cm) LVDd4.27 (3.9-5.9cm)LVOT Diameter1.56 (1.8-2.4cm) PWd0.94 (0.7-1.1cm)IVSs1.33 (0.8-1.2cm) LVDs3.18 (2.5-4.0cm)FS (%) 25.5 % PWs0.98 (0.8-1.2cm) M-Mode DIMENSIONS Left Atrium (MM)3.02 (2.5-4.0cm)IVSd0.75 (0.7-1.1cm) Aortic Root2.64 (2.2-3.7cm)LVDd5.35 (4.0-5.6cm) Aortic Cusp Exc.1.90 (1.5-2.0cm)PWd1.40 (0.7-1.1cm) IVSs0.96 cmFS (%) 30 % LVDs3.73 (2.0-3.8cm)PWs1.34 cm Mitral Valve MV E Zyaufill02.6cm/sMV DECEL [id number] A Xvytcnnw82.1cm/s MV FTB61vgE/A ratio1.1MVA (PHT)4.11cm2 TDI Lateral E' Peak V11.16cm/sMedial E' Peak V9.21cm/sE/Lateral E'7.4 E/Medial E'9.0 LEFT VENTRICLE The left ventricle is normal size. There is normal left ventricular wall thickness. The left ventricular function is normal. The left ventricular ejection fraction is 65% There is normal LV segmental wall motion. The left ventricular diastolic function is normal. No left ventricle thrombus noted on this study. There is no ventricular septal defect visualized. There is no left ventricular aneurysm. There is no mass noted in the left ventricle. RIGHT VENTRICLE The right ventricle is normal size. There is normal right ventricular wall thickness. The right ventricular systolic function is normal. ATRIA The left atrium size is normal. The right atrium size is normal. The interatrial septum is intact with no evidence for an atrial septal defect. AORTIC VALVE The aortic valve is normal in structure. No aortic regurgitation is present. There is no aortic valvular stenosis. There is no aortic valvular vegetation. MITRAL VALVE The mitral valve is normal in structure. There is no evidence of mitral valve prolapse. There is no mitral valve stenosis. There is no mitral valve regurgitation noted. TRICUSPID VALVE The tricuspid valve is normal in structure. There is no tricuspid valve regurgitation noted. There is no tricuspid valve prolapse or vegetation. There is no tricuspid valve stenosis. PULMONIC VALVE The pulmonary valve is normal in structure. There is no pulmonic valvular regurgitation. There is no pulmonic valvular stenosis. GREAT VESSELS The aortic root is normal in size. The ascending aorta is normal in size. The IVC is normal in size and collapses >50% with inspiration. PERICARDIAL EFFUSION The pericardium appears normal. There is no pleural effusion. <Conclusion> Normal Echocardiogram
[2017-04-25] MEDS ORDERED: Potassium CL 10mEq/100ml 100 ML IVPB SCH (10:00)
--- NOTE | 2017-04-25 10:05 | CARD ---
APPROVED REPORT EKG Measurement Heart [id number] <Conclusion> Normal sinus rhythm Nonspecific ST and T wave abnormality Prolonged QT Abnormal ECG
--- NOTE | 2017-04-25 10:05 | CARD ---
APPROVED REPORT EKG Measurement Heart [id number] <Conclusion> Normal sinus rhythm Prolonged QT Abnormal ECG
[2017-04-25] MEDS: Potassium CL 10 MEQ/50 ML 50 ML IVPB SCH ×8 (10:44→21:38)
[2017-04-25 16:44] LABS: BLOOD UREA NITROGEN 3 mg/dl (7-17); CALCIUM 8.6 mg/dL (8.4-10.2); CARBON DIOXIDE 33 mmol/L (22-30); CHLORIDE 90 mmol/L (98-107); GFR AFRICAN-AMERICAN > 60; GLUCOSE,RANDOM 98 mg/dL (65-105); POTASSIUM 2.7 MMOL/L (3.6-5.0); SODIUM 132 mmol/l (132-148)
[2017-04-25] MEDS ORDERED: Potassium Chloride 40 MEQ in Lactated Ringer's 1,000 ML IV SCH (17:00)
[2017-04-25] MEDS: KCL 40MEQ/NS 1L 1,000 ML IV SCH (21:35)
[2017-04-26 05:16] LABS: BASO # 0.1 K/uL (0.0-0.2); BASO % 0.7 % (0.0-2.0); EOS # 0.3 K/uL (0.0-0.7); EOS % 2.9 % (0.0-4.0); HEMATOCRIT 40.1 % (34.0-47.0); LYMPH # 2.8 K/uL (1.0-4.3); LYMPH % 30.8 % (20.0-40.0); MEAN CELL VOLUME 81.1 fl (81.0-99.0); MEAN CORPUSCULAR HEMOGLOBIN 26.5 pg (27.0-31.0); MEAN CORPUSCULAR HGB CONC 32.7 g/dL (33.0-37.0); MEAN PLATELET VOLUME 7.9 fl (7.2-11.7); MONO % 11.3 % (0.0-10.0); NEUT # 4.9 K/uL (1.8-7.0); NEUT % 54.3 % (50.0-75.0); RED CELL DISTRIBUTION WIDTH 13.5 % (11.5-14.5)
[2017-04-26 05:37] LABS: ALKALINE PHOSPHATASE 51 U/L (38-126); ALT/SGPT 47 U/L (9-52); AST/SGOT 33 U/L (14-36); BILIRUBIN,TOTAL 0.7 mg/dl (0.2-1.3); BLOOD UREA NITROGEN 3 mg/dl (7-17); CALCIUM 8.5 mg/dL (8.4-10.2); CARBON DIOXIDE 36 mmol/L (22-30); CHLORIDE 91 mmol/L (98-107); GFR AFRICAN-AMERICAN > 60; GLUCOSE,RANDOM 97 mg/dL (65-105); POTASSIUM 3.2 MMOL/L (3.6-5.0); SODIUM 134 mmol/l (132-148); TOTAL PROTEIN 6.2 G/DL (6.3-8.2)
[2017-04-26] MEDS: KCL 40MEQ/NS 1L 1,000 ML IV SCH ×2 (05:45→15:44)
[2017-04-26 07:16] LABS: ALB/GLOB RATIO 1.2 (1.0-2.1)
[2017-04-26] MEDS: Potassium CL 10 MEQ/50 ML 50 ML IVPB SCH ×2 (08:00→09:05)
[2017-04-26] MEDS: ceFAZolin IV 1 gm in Dextrose 1 GM/50 ML BAG IVPB SCH ×2 (08:38→20:10)
--- NOTE | 2017-04-26 08:50 | CP.PCM.PN ---
Subjective - Date & Time of Evaluation Date of Evaluation: 04/26/17 Time of Evaluation: 08:48 - Subjective Subjective: pt doing well, less n/v, mela more po. still spitting up but no vomiting. no f/c, no pain. k 3.2 this am still w/ anxiety. pendign psych eval nephro consult pending for hypokalemia Objective - Vital Signs/Intake and Output Vital Signs (last 24 hours): Temp Pulse Resp BP Pulse Ox 98 F 73 20 131/96 H 100 04/26/17 08:00 04/26/17 08:00 04/26/17 08:00 04/26/17 08:00 04/26/17 08:00 - Medications Medications: Current Medications Alprazolam (Xanax) 0.5 mg PO BID PRN PRN Reason: Anxiety Last Admin: 04/25/17 23:10 Dose: 0.5 mg Escitalopram Oxalate (Lexapro) 10 mg PO DAILY [facility] Last Admin: 04/26/17 08:38 Dose: 10 mg Famotidine (Pepcid) 20 mg IVP Q12 [facility] Last Admin: 04/26/17 08:40 Dose: 20 mg Cefazolin Sodium/Dextrose (Ancef Iv 1 Gm Duplex) 1 gm in 50 mls @ 50 mls/hr IVPB Q12 [facility] PRN Reason: Protocol Last Admin: 04/26/17 08:38 Dose: 50 mls/hr Oral Electrolytes (Kcl 40meq/ 0.9% 1l) 1,000 mls @ 100 mls/hr IV .Q10H [facility] Last Admin: 04/25/17 21:35 Dose: 100 mls/hr Potassium Chloride (Potassium Cl 10meq/50ml Sterile Water) 50 mls @ 50 mls/hr IVPB Q1 [facility] Stop: 04/26/17 08:59 Last Admin: 04/26/17 08:00 Dose: 50 mls/hr Ondansetron HCl (Zofran Inj) 4 mg IVP Q6 PRN PRN Reason: Nausea/Vomiting Last Admin: 04/25/17 17:43 Dose: 4 mg - Labs Labs: 04/26/17 05:00 04/26/17 05:00 - Constitutional Appears: Well, Non-toxic, No Acute Distress - Head Exam Head Exam: ATRAUMATIC, NORMAL INSPECTION, NORMOCEPHALIC - Eye Exam Eye Exam: EOMI, Normal appearance, PERRL Pupil Exam: NORMAL ACCOMODATION, PERRL - ENT Exam ENT Exam: Mucous Membranes Moist, Normal Exam - Neck Exam Neck Exam: Full ROM, Normal Inspection. absent: Lymphadenopathy - Respiratory Exam Respiratory Exam: Clear to Ausculation Bilateral, NORMAL BREATHING PATTERN - Cardiovascular Exam Cardiovascular Exam: REGULAR RHYTHM, RRR, +S1, +S2. absent: Murmur - GI/Abdominal Exam GI & Abdominal Exam: Soft, Normal Bowel Sounds. absent: Tenderness - Extremities Exam Extremities Exam: Full ROM, Normal Capillary Refill, Normal Inspection. absent : Joint Swelling, Pedal Edema - Back Exam Back Exam: NORMAL INSPECTION - Neurological Exam Neurological Exam: Alert, Awake, CN II-XII Intact, Normal Gait, Oriented x3 - Psychiatric Exam Psychiatric exam: Normal Affect, Normal Mood - Skin Skin Exam: Dry, Intact, Normal Color, Warm Assessment and Plan (1) DVT prophylaxis Assessment & Plan: scd and aehose ambulation Status: Acute (2) Acute electrocardiogram changes Assessment & Plan: cardio echo likely r/t hypokalemia Status: Acute (3) Depression Assessment & Plan: psych cont meds xanax incr to bid inpt psych eval when med cleared 1:1 Status: Acute (4) Hypokalemia Assessment & Plan: improving. k now 3.2 2 runs of kcl today nephro recheck cmp in am Status: Acute (5) Nausea & vomiting Status: Acute (6) UTI (urinary tract infection) Assessment & Plan: ancef, c/s noted Status: Acute
[2017-04-26] MEDS ORDERED: Potassium CL 10 MEQ/50 ML 50 ML IVPB SCH (12:00)
[2017-04-26] MEDS ORDERED: Potassium Chloride 20 mEq ER Tab PO ONE (15:45)
--- NOTE | 2017-04-26 22:59 | CP.PCM.CON ---
History of Present Illness - History of Present Illness History of Present Illness: renal consult note 31 yr old with hx of bariatric surgery in october 2016 is admitted with weakness, nausea vomiting and depressive symptoms with suicidal ideation. we have been consulted for severe hypokalemia with inability to tolerate po and ekg changes Review of Systems - Review of Systems All systems: reviewed and no additional remarkable complaints except Past Patient History - Past Medical History & Family History Past Medical History?: No - Past Social History Smoking Status: Never Smoked - CARDIAC Hx Cardiac Disorders: No - PULMONARY Hx Tuberculosis: No - NEUROLOGICAL HX Cerebrovascular Accident: No Hx Seizures: No - HEMATOLOGICAL/ONCOLOGICAL Hx AIDS: No Hx Human Immunodeficiency Virus (HIV): No - MUSCULOSKELETAL/RHEUMATOLOGICAL Hx Falls: No - GENITOURINARY/GYNECOLOGICAL Hx Sexually Transmitted Disorders: No - PSYCHIATRIC Hx Substance Use: No - SURGICAL HISTORY Hx Surgeries: Yes Hx Gastric Bypass Surgery: Yes (11/16) - ANESTHESIA Hx Anesthesia: Yes Hx Anesthesia Reactions: No Hx Malignant Hyperthermia: No Meds Allergies/Adverse Reactions: Allergies Allergy/AdvReac Type Severity Reaction Status Date / Time No Known Allergies Allergy Verified 04/23/17 18:21 - Medications Medications: Current Medications Alprazolam (Xanax) 0.5 mg PO BID PRN PRN Reason: Anxiety Last Admin: 04/26/17 12:23 Dose: 0.5 mg Escitalopram Oxalate (Lexapro) 10 mg PO DAILY [facility] Last Admin: 04/26/17 08:38 Dose: 10 mg Famotidine (Pepcid) 20 mg IVP Q12 TERRY Last Admin: 04/26/17 20:27 Dose: 20 mg Cefazolin Sodium/Dextrose (Ancef Iv 1 Gm Duplex) 1 gm in 50 mls @ 50 mls/hr IVPB Q12 [facility] PRN Reason: Protocol Last Admin: 04/26/17 20:10 Dose: 50 mls/hr Ondansetron HCl (Zofran Inj) 4 mg IVP Q6 PRN PRN Reason: Nausea/Vomiting Last Admin: 04/25/17 17:43 Dose: 4 mg Results - Vital Signs Recent Vital Signs: Last Vital Signs Temp 98.8 F 04/26/17 20:36 Pulse 83 04/26/17 20:36 Resp 14 04/26/17 20:36 BP 132/88 04/26/17 20:36 Pulse Ox 96 04/26/17 20:36 - Labs Result Diagrams: 04/26/17 05:00 04/26/17 05:00 Labs: Laboratory Results - last 24 hr 04/26/17 04/26/17 04/26/17 05:00 05:00 12:30 WBC 9.0 RBC 4.94 Hgb 13.1 Hct 40.1 MCV 81.1 MCH 26.5 L MCHC 32.7 L RDW 13.5 Plt Count 268 MPV 7.9 Neut % (Auto) 54.3 Lymph % (Auto) 30.8 Dougherty % (Auto) 11.3 H Eos % (Auto) 2.9 Baso % (Auto) 0.7 Neut # 4.9 Lymph # 2.8 Dougherty # 1.0 H Eos # 0.3 Baso # 0.1 Sodium 134 Potassium 3.2 L Chloride 91 L Carbon Dioxide 36 H Anion Gap 10 BUN 3 L Creatinine 0.6 L Est GFR ( Amer) > 60 Est GFR (Non-Af Amer) > 60 Random Glucose 97 Calcium 8.5 Total Bilirubin 0.7 AST 33 ALT 47 Alkaline Phosphatase 51 Total Protein 6.2 L Albumin 3.4 L Globulin 2.8 Albumin/Globulin Ratio 1.2 Ur Random Sodium 187 Ur Random Potassium 12.5 Assessment & Plan - Assessment and Plan (Free Text) Plan: hypokalemia/QTc prologation/bariatric surgery/vomiting.depression urine lytes pending suspect severe hypokalemia sec to vomiting leading to metabolic alkalosis; sec to surgery magnesium normal replace potassium iv aggressively. consider switching to po if and when patient tolerates d/w [employer] on service
[2017-04-26 23:44] VITALS: RESP 18
[2017-04-27 05:48] LABS: BASO # 0.1 K/uL (0.0-0.2); EOS # 0.2 K/uL (0.0-0.7); EOS % 2.1 % (0.0-4.0); LYMPH # 2.5 K/uL (1.0-4.3); MEAN CELL VOLUME 81.3 fl (81.0-99.0); MEAN CORPUSCULAR HEMOGLOBIN 26.7 pg (27.0-31.0); MEAN CORPUSCULAR HGB CONC 32.9 g/dL (33.0-37.0); MEAN PLATELET VOLUME 7.8 fl (7.2-11.7); MONO # 0.5 K/uL (0.0-0.8); MONO % 7.2 % (0.0-10.0); NEUT # 4.3 K/uL (1.8-7.0); NEUT % 56.7 % (50.0-75.0); NRBC % 0.1 % (0.0-0.0); RED CELL DISTRIBUTION WIDTH 13.6 % (11.5-14.5); WHITE BLOOD COUNT 7.5 K/uL (4.8-10.8)
[2017-04-27 06:24] LABS: ALB/GLOB RATIO 1.3 (1.0-2.1); ALKALINE PHOSPHATASE 54 U/L (38-126); ALT/SGPT 51 U/L (9-52); AST/SGOT 39 U/L (14-36); BILIRUBIN,TOTAL 0.8 mg/dl (0.2-1.3); BLOOD UREA NITROGEN 4 mg/dl (7-17); CALCIUM 8.9 mg/dL (8.4-10.2); CARBON DIOXIDE 33 mmol/L (22-30); CHLORIDE 94 mmol/L (98-107); GFR AFRICAN-AMERICAN > 60; GLUCOSE,RANDOM 96 mg/dL (65-105); POTASSIUM 3.3 MMOL/L (3.6-5.0); SODIUM 134 mmol/l (132-148); TOTAL PROTEIN 6.6 G/DL (6.3-8.2)
--- NOTE | 2017-04-27 07:53 | CP.PCM.PN ---
Subjective - Date & Time of Evaluation Date of Evaluation: 04/27/17 Time of Evaluation: 07:52 - Subjective Subjective: pt denies complaints, less n/v. k 3.3 no f/c, diarrhea. ekg w/ qtc 380. cleared by cardio for dc to psych Objective - Vital Signs/Intake and Output Vital Signs (last 24 hours): Temp Pulse Resp BP Pulse Ox 97.9 F 101 H 18 144/95 H 98 04/27/17 05:31 04/27/17 05:31 04/27/17 05:31 04/27/17 05:31 04/27/17 05:31 - Medications Medications: Current Medications Alprazolam (Xanax) 0.5 mg PO BID PRN PRN Reason: Anxiety Last Admin: 04/27/17 00:03 Dose: 0.5 mg Escitalopram Oxalate (Lexapro) 10 mg PO DAILY TERRY Last Admin: 04/26/17 08:38 Dose: 10 mg Famotidine (Pepcid) 20 mg IVP Q12 TERRY Last Admin: 04/26/17 20:27 Dose: 20 mg Cefazolin Sodium/Dextrose (Ancef Iv 1 Gm Duplex) 1 gm in 50 mls @ 50 mls/hr IVPB Q12 TERRY PRN Reason: Protocol Last Admin: 04/26/17 20:10 Dose: 50 mls/hr Ondansetron HCl (Zofran Inj) 4 mg IVP Q6 PRN PRN Reason: Nausea/Vomiting Last Admin: 04/25/17 17:43 Dose: 4 mg Potassium Chloride (K-Dur 20 Meq Er Tab) 20 meq PO DAILY TERRY - Labs Labs: 04/27/17 04:20 04/27/17 04:20 Assessment and Plan (1) DVT prophylaxis Status: Acute (2) Acute electrocardiogram changes Status: Acute (3) Depression Status: Acute (4) Hypokalemia Status: Acute (5) Nausea & vomiting Status: Acute (6) UTI (urinary tract infection) Status: Acute - Assessment and Plan (Free Text) Assessment: (1) DVT prophylaxis Assessment & Plan: scd and aehose ambulation Status: Acute (2) Acute electrocardiogram changes Assessment & Plan: cardio echo likely r/t hypokalemia resolved Status: Acute (3) Depression Assessment & Plan: psych cont meds klonopin from xanax as per psych note inpt psych eval when med cleared 1:1 Status: Acute (4) Hypokalemia Assessment & Plan: k now 3.3 will monitor Status: Acute (5) Nausea & vomiting Status: Acute (6) UTI (urinary tract infection) Assessment & Plan: ancef, c/s noted Status: Acute
--- NOTE | 2017-04-27 07:54 | CARD ---
APPROVED REPORT EKG Measurement Heart [id number] IL [id number] [id number] <Conclusion> Normal sinus rhythm Normal ECG
[2017-04-27] MEDS: ceFAZolin IV 1 gm in Dextrose 1 GM/50 ML BAG IVPB SCH (09:12)
[2017-04-27] MEDS: Potassium Chloride 20 mEq ER Tab PO SCH ×2 (09:15→14:52)
[2017-04-27 12:05] VITALS: BP 132/87; PULSE 85; TEMP 98; O2SAT 100
[2017-04-27] MEDS ORDERED: Potassium Chloride 20 mEq ER Tab PO ONE (13:05)
--- NOTE | 2017-04-27 13:09 | CP.PCM.PN ---
Subjective - Date & Time of Evaluation Date of Evaluation: 04/27/17 Time of Evaluation: 13:07 - Subjective Subjective: Patient awake, shows she feels good Although she is still nauseous intermittently No actual vomiting happening or diarrhea Objective - Vital Signs/Intake and Output Vital Signs (last 24 hours): Temp Pulse Resp BP Pulse Ox 98 F 85 18 132/87 100 04/27/17 12:04 04/27/17 12:04 04/27/17 12:04 04/27/17 12:04 04/27/17 12:04 - Medications Medications: Current Medications Clonazepam (Klonopin) 0.5 mg PO BID PRN PRN Reason: Anxiety Escitalopram Oxalate (Lexapro) 10 mg PO DAILY [facility] Last Admin: 04/27/17 09:10 Dose: 10 mg Famotidine (Pepcid) 20 mg IVP Q12 [facility] Last Admin: 04/27/17 09:13 Dose: 20 mg Cefazolin Sodium/Dextrose (Ancef Iv 1 Gm Duplex) 1 gm in 50 mls @ 50 mls/hr IVPB Q12 TERRY PRN Reason: Protocol Last Admin: 04/27/17 09:12 Dose: 50 mls/hr Ondansetron HCl (Zofran Inj) 4 mg IVP Q6 PRN PRN Reason: Nausea/Vomiting Last Admin: 04/27/17 09:18 Dose: 4 mg Potassium Chloride (K-Dur 20 Meq Er Tab) 20 meq PO DAILY [facility] Last Admin: 04/27/17 09:15 Dose: 20 meq Potassium Chloride (K-Dur 20 Meq Er Tab) 40 meq PO ONCE ONE Stop: 04/27/17 13:06 - Labs Labs: 04/27/17 04:20 04/27/17 04:20 - Constitutional Appears: No Acute Distress - ENT Exam ENT Exam: Mucous Membranes Moist - Neck Exam Neck Exam: absent: Lymphadenopathy - Respiratory Exam Respiratory Exam: absent: Chest Wall Tenderness, Rales, Rhonchi - Cardiovascular Exam Cardiovascular Exam: REGULAR RHYTHM. absent: Rubs - GI/Abdominal Exam GI & Abdominal Exam: Soft - Extremities Exam Extremities Exam: absent: Calf Tenderness - Back Exam Back Exam: absent: CVA tenderness (L), CVA tenderness (R) - Neurological Exam Neurological Exam: Alert - Psychiatric Exam Psychiatric exam: Normal Affect - Skin Skin Exam: absent: Cyanosis Assessment and Plan (1) Hypokalemia Assessment & Plan: Serum potassium improving up to 3.2 we will give stat potassium chloride 40 mEq by mouth now Repeat BMP tomorrow morning Patient scheduled to be transferred to psychiatry my understanding. Continue monitor electrolyte Status: Acute
== END 2017-04-27 15:10 | DRG 188 ==
LOC: H.ER 18:16 → H.ERHOLD 20:22 → H.TEL 22:25
PROVIDERS: ADMIT Family Medicine; ATTEND Family Medicine
DX: K95.89 Other complications of other bariatric procedure (principal); E87.6 Hypokalemia; E87.3 Alkalosis; R45.851 Suicidal ideations; I45.81 Long QT syndrome; N39.0 Urinary tract infection, site not specified; Z98.84 Bariatric surgery status; F32.9 Major depressive disorder, single episode, unspecified; F41.0 Panic disorder [episodic paroxysmal anxiety]; F41.9 Anxiety disorder, unspecified; R11.2 Nausea with vomiting, unspecified; Y83.8 Other surgical procedures as the cause of abnormal reaction of the patient, or of later complication, without mention of misadventure at the time of the procedure

== ENCOUNTER 2017-04-27 13:33 | Inpatient (IN) | payer MEDICAID ==
[2017-04-27 15:45] VITALS: BMI 31.9
[2017-04-27] MEDS ORDERED: Magnesium Hydroxide Susp 30 ml UD PO PRN (16:00)
[2017-04-27] MEDS ORDERED: DiphenhydrAMINE 50 mg/ml Inj IM PRN (16:00)
[2017-04-27] MEDS ORDERED: Alum-Mag Hydrox-Simethicone Susp (30 mL) PO PRN (16:00)
--- NOTE | 2017-04-27 17:52 | PCM.BM ---
Treatment Plan Problems - Problems identified on initial assessmt Problem 1 Date Initiated: 04/27/17 Time Initiated: 17:51 Assessment reference: NA Status: Active Treatment assets and liabiliti Patient Assests: cooperative, educated, ADL independent Patient Liabilities: poor support system, relationship conflicts, medical problems - Milieu Protocol Maintain good personal hygiene: daily Encourage regular showers, daily Remind patient to perform daily oral care, daily Assist patient to perform ADL's Maintain personal safety: every shift Educate patient to report safety concerns to staff, every shift Monitor environment for contraband/sharps Medication safety: Monitor for expected outcome, potential side effects: every shift, Assess barriers to learning: every shift, Assess readiness for medication education: every shift
[2017-04-27] MEDS: Amoxicillin-Clav 875-125 mg Tab PO SCH (21:15)
[2017-04-28 07:03] LABS: BASO # 0.1 K/uL (0.0-0.2); BASO % 0.7 % (0.0-2.0); EOS # 0.1 K/uL (0.0-0.7); HEMOGLOBIN 14.1 g/dL (12.0-16.0); LYMPH # 2.5 K/uL (1.0-4.3); LYMPH % 21.7 % (20.0-40.0); MEAN CORPUSCULAR HEMOGLOBIN 27.2 pg (27.0-31.0); MEAN CORPUSCULAR HGB CONC 33.5 g/dL (33.0-37.0); MEAN PLATELET VOLUME 8.2 fl (7.2-11.7); MONO # 0.8 K/uL (0.0-0.8); MONO % 6.8 % (0.0-10.0); NEUT # 8.1 K/uL (1.8-7.0); NEUT % 69.8 % (50.0-75.0); NRBC % 0.4 % (0.0-0.0); RBC 5.19 Mil/uL (3.80-5.20); RED CELL DISTRIBUTION WIDTH 13.5 % (11.5-14.5); WHITE BLOOD COUNT 11.6 K/uL (4.8-10.8)
[2017-04-28 07:19] LABS: LDL CHOLESTEROL 94 mg/dL (0-129)
[2017-04-28 07:24] LABS: T4 11.7 ug/dl (5.5-11.0)
[2017-04-28 07:39] LABS: ALB/GLOB RATIO 1.3 (1.0-2.1); ALBUMIN 3.9 g/dL (3.5-5.0); ALT/SGPT 59 U/L (9-52); AST/SGOT 35 U/L (14-36); BLOOD UREA NITROGEN 6 mg/dl (7-17); CALCIUM 9.4 mg/dL (8.4-10.2); GFR AFRICAN-AMERICAN > 60; GFR NON-AFRICAN AMERICAN > 60
[2017-04-28 07:44] LABS: HDL CHOLESTEROL 47 MG/DL (30-70)
[2017-04-28] MEDS: Amoxicillin-Clav 875-125 mg Tab PO SCH (08:50)
--- NOTE | 2017-04-28 09:21 | CP.PCM.HP ---
History of Present Illness - History of Present Illness History of Present Illness: pt on 3np for depression/si. at presnt minimal n/v but still only mela small amt of po. k noted. unable to mela augmentin for uti. pt rec'd 5 days of ancef. ua is wnl. no si at present. no abd pain. bw noted Present on Admission - Present on Admission Any Indicators Present on Admission: No Review of Systems - Gastrointestinal Gastrointestinal: As Per HPI, Nausea - Psychiatric Psychiatric: As Per HPI, Depression, Suicidal Ideation Past Patient History - Past Medical History & Family History Past Medical History?: No - Past Social History Smoking Status: Never Smoked - CARDIAC Hx Cardiac Disorders: No - PULMONARY Hx Tuberculosis: No - NEUROLOGICAL HX Cerebrovascular Accident: No Hx Seizures: No - HEMATOLOGICAL/ONCOLOGICAL Hx AIDS: No Hx Human Immunodeficiency Virus (HIV): No - MUSCULOSKELETAL/RHEUMATOLOGICAL Hx Falls: Yes - GENITOURINARY/GYNECOLOGICAL Hx Sexually Transmitted Disorders: No - PSYCHIATRIC Hx Substance Use: No - SURGICAL HISTORY Hx Surgeries: Yes Hx Gastric Bypass Surgery: Yes (11/16) - ANESTHESIA Hx Anesthesia: Yes Hx Anesthesia Reactions: No Hx Malignant Hyperthermia: No Meds Allergies/Adverse Reactions: Allergies Allergy/AdvReac Type Severity Reaction Status Date / Time No Known Allergies Allergy Verified 04/23/17 18:21 Physical Exam - Constitutional Appears: Well, Non-toxic, No Acute Distress - Head Exam Head Exam: ATRAUMATIC, NORMAL INSPECTION, NORMOCEPHALIC - Eye Exam Eye Exam: EOMI, Normal appearance, PERRL Pupil Exam: NORMAL ACCOMODATION, PERRL - ENT Exam ENT Exam: Mucous Membranes Moist, Normal Exam - Neck Exam Neck exam: Positive for: Normal Inspection - Respiratory Exam Respiratory Exam: Clear to Auscultation Bilateral, NORMAL BREATHING PATTERN - Cardiovascular Exam Cardiovascular Exam: REGULAR RHYTHM, RRR, +S1, +S2 - GI/Abdominal Exam GI & Abdominal Exam: Normal Bowel Sounds, Soft. absent: Tenderness - Extremities Exam Extremities exam: Positive for: full ROM, normal capillary refill, normal inspection, pedal pulses present - Back Exam Back exam: NORMAL INSPECTION - Neurological Exam Neurological exam: Alert, CN II-XII Intact, Normal Gait, Oriented x3, Reflexes Normal - Psychiatric Exam Psychiatric exam: Normal Affect, Normal Mood - Skin Skin Exam: Dry, Intact, Normal Color, Warm Results - Vital Signs Recent Vital Signs: Last Vital Signs Temp 97.2 F L 04/28/17 05:26 Pulse 90 04/28/17 05:26 Resp 18 04/28/17 05:26 BP 131/81 04/28/17 05:26 Pulse Ox - Labs Result Diagrams: 04/28/17 06:47 04/28/17 06:47 Labs: Laboratory Results - last 24 hr 04/28/17 04/28/17 06:47 06:47 WBC 11.6 H D RBC 5.19 Hgb 14.1 Hct 42.0 MCV 81.0 MCH 27.2 MCHC 33.5 RDW 13.5 Plt Count 282 MPV 8.2 Neut % (Auto) 69.8 Lymph % (Auto) 21.7 Wolfe % (Auto) 6.8 Eos % (Auto) 1.0 Baso % (Auto) 0.7 Neut # 8.1 H Lymph # 2.5 Wolfe # 0.8 Eos # 0.1 Baso # 0.1 Sodium 131 L Potassium 3.2 L Chloride 92 L Carbon Dioxide 31 H Anion Gap 11 BUN 6 L Creatinine 0.6 L Est GFR ( Amer) > 60 Est GFR (Non-Af Amer) > 60 Random Glucose 110 H Calcium 9.4 Total Bilirubin 0.9 AST 35 ALT 59 H Alkaline Phosphatase 61 Total Protein 6.9 Albumin 3.9 Globulin 3.0 Albumin/Globulin Ratio 1.3 Triglycerides 90 Cholesterol 152 LDL Cholesterol Direct 94 HDL Cholesterol 47 Thyroxine (T4) 11.7 H TSH 3rd Generation 0.72 Assessment & Plan (1) Major depressive disorder Assessment and Plan: psy meds, interventions,therapies Status: Acute (2) DVT prophylaxis Assessment and Plan: ambulation Status: Acute (3) Hypokalemia Assessment and Plan: resolved, r/t n/v kdur daily potassium rich foods Status: Acute (4) Nausea & vomiting Assessment and Plan: zofran prn. po as mela outpt bariatric surgery f/u Status: Acute
[2017-04-28] MEDS: Potassium Chloride 20 mEq ER Tab PO SCH (09:41)
--- NOTE | 2017-04-28 12:16 | PCM.PSYCH ---
Initial Psychiatric Evaluation - Initial Psychiatric Evaluation Type of Admission: Voluntary Legal Status: Capacity Chief Complaint (in patient's own words): "I'm depressed." Patient's Reaction to Hospitalization: HPI: 31 yo female BIB mother due to active suicidal ideation to jump out of the window or turn the gas on in her house when no one is home. She denies current ideation to harm herself, but continues to report severe depression and anxiety. She reports that she has panic attacks for which she was prescribed Xanax. She started Lexapro 3 days prior to being medically admitted w/ hypokalemia. +sleep/appetite disturbances +anhedonia + hopelessness. +low self esteem. She was admitted to the medicine unit for prolonged QTC and hypokalemia. She is agreeable to voluntary psychiatric admission at this time. In the ER: CW (JAY) spoke to pt's mother Shauna Roberts [phone] to obtain collateral information. As per pt.'s, mother, pt has been expressing active SI with a plan with to "jump out the window" and/or "turn on the gas." Pt's mother reported that pt has two children and she wants pt to get the help that she needs to improve her depression. Pt's mother stated that pt recently saw a therapist and she is scheduled to see a psychiatrist within two weeks. PMHx: H/o gastric bypass PPHx: She recently initiated psychiatric treatment at [facility] in [place], [place]; on Lexapro 10 mg PO Daily and Xanax PRN SHx: Completed 12th grade, some college; lives in an apt w/ her children. Denies drugs/etoh/cig. Current Medications: Active Medications Generic Name Dose Route Start Last Admin Trade Name Freq PRN Reason Stop Dose Admin Acetaminophen 650 mg 04/27/17 16:00 Tylenol 325mg Tab PO Q4 PRN pain Al Hydrox/Mg Hydrox/Simethicone 30 ml 04/27/17 16:00 Maalox Plus 30 Ml PO Q4 PRN Dyspepsia Clonazepam 0.5 mg 04/27/17 16:46 04/27/17 21:15 Klonopin PO 0.5 mg BID PRN Administration Anxiety Diphenhydramine HCl 50 mg 04/27/17 16:00 Benadryl IM Q6 PRN Extrapyramidal S/S Unable PO Diphenhydramine HCl 50 mg 04/27/17 16:00 Benadryl PO Q6 PRN Extrapyramidal Symptoms Escitalopram Oxalate 10 mg 04/28/17 09:00 04/28/17 08:50 Lexapro PO 10 mg DAILY TERRY Administration Famotidine 20 mg 04/28/17 09:00 04/28/17 08:50 Pepcid PO 20 mg DAILY TERRY Administration Haloperidol 5 mg 04/27/17 16:00 Haldol PO Q4 PRN Agitation Haloperidol Lactate 5 mg 04/27/17 16:00 Haldol IM Q4 PRN Agitation, Unable to Take PO Lorazepam 2 mg 04/27/17 16:00 Ativan IM Q4 PRN Anxiety/Agitation,Unable PO Lorazepam 2 mg 04/27/17 16:00 Ativan PO Q4 PRN Anxiety/Agitation Magnesium Hydroxide 30 ml 04/27/17 16:00 Milk Of Magnesia PO HS PRN Constipation Ondansetron HCl 4 mg 04/27/17 17:53 04/27/17 19:28 Zofran Tab PO 4 mg Q6 PRN Administration Nausea/Vomiting Potassium Chloride 20 meq 04/28/17 09:00 04/28/17 09:41 K-Dur 20 Meq Er Tab PO 20 meq DAILY TERRY Administration Past Psychiatric History - Past Psychiatric History Previous Treatment History: None Pertinent Medical Hx (Current Medical&Sleep Prob, Allergies): Allergies Allergy/AdvReac Type Severity Reaction Status Date / Time No Known Allergies Allergy Verified 04/23/17 18:21 Alprazolam [Xanax] 0.5 mg PO DAILY PRN 04/23/17 Escitalopram [Lexapro] 10 mg PO DAILY 04/23/17 Omeprazole mg PO DAILY 04/23/17 Potassium Chloride [K-Dur 20] 20 meq PO DAILY 04/27/17 clonazePAM [clonAZEPAM] 0.5 mg PO BID PRN 04/27/17 Review of Systems - Psychiatric Psychiatric: As Per HPI, Abnormal Sleep Pattern, Anxiety, Change in Appetite, Depression, Difficulty Concentrating, Hopelessness, Irritability, Mood Swings, Suicidal Ideation Mental Status Examination - Personal Presentation Personal Presentation: Looks stated age - Affect Affect: Blunted, Depressed - Motor Activity Motor Activity: Calm - Reliability in Providing Information Reliability in Providing Information: Good - Speech Speech: Organized - Mood Mood: Depressed, Anxious - Formal Thought Process Formal Thought Process: No Impairment - Hallucinations/Delusions Additional comments: No AH/VH/paranoia/delusions - Obsessions/Compulsions Obsessions: No Compulsions: No - Cognitive Functions Orientation: Person, Place, Situation, Time Sensorium: Alert Attention/Concentration: Attentive Estimate of Intelligence: Average Judgement: Intact, as evidence by: Insight regarding need for hospitalization Memory: Recent intact, as evidence by: Ability to recall events of the day, Remote intact, as evidenced by: Abilit to recall sig. life events, Remote intact , as evidenced by: Ability to recall historical events - Risk Risk: Suicidal, Diminished functioning - Strength & Assets Inventory Strength & Assets Inventory: Family support, Cooperative DSM 5 DX - DSM 5 DSM 5 Diagnosis: Major Depressive Disorder; Generalized Anxiety Disorder w/ Panic attacks - Recommended/Plan of Treatment Treatment Recommendations and Plan of Treatment: Major Depressive Disorder; Generalized Anxiety Disorder w/ Panic attacks -Lexapro 10 mg PO Daily -Clonazepam 0.5 mg PO BID -Individual and group therapy -Medicine consult -Psychoeducation -Disposition planning Projected ELOS: 5-7 days Discharge Plan and Discharge Criteria: Discharge patient when she is psychiatrically stable - Smoking Cessation Smoking Cessation Initiated: No Reason for not providing: Not indicated
[2017-04-28 14:38] LABS: SQUAMOUS EPITHIAL 2 /hpf (0-5); URINE BACTERIA RARE (<OCC); URINE BILIRUBIN NEGATIVE (NEGATIVE); URINE BLOOD NEGATIVE (NEGATIVE); URINE CLARITY CLOUDY (Clear); URINE COLOR AMBER (YELLOW); URINE GLUCOSE (UA) NEG (Normal); URINE HYALINE CAST 0-2 /hpf (0-2); URINE LEUKOCYTE ESTERASE NEG Leu/uL (Negative); URINE NITRATE NEGATIVE (NEGATIVE); URINE PROTEIN 100 mg/dL (NEGATIVE)
[2017-04-29] MEDS: Potassium Chloride 20 mEq ER Tab PO SCH ×2 (09:03→17:48)
--- NOTE | 2017-04-29 11:10 | PCM.PYCHPN ---
Psychiatric Progress Note - Psychiatric Progress Note Patient seen today, length of contact: Patient evaluated, case discussed w/ team , chart reviewed Patient Chief Complaint: "I'm depressed." Problems Identified/Issues Discussed: Patient continues to report depressed mood. She had difficulty sleeping at night. She has lack of motivation to get out of bed. Patient encouraged to attend groups, but she is not agreeable at this time due to anhedonia and low motivation. NO AH/VH/SI/HI. Medication Change: No Medical Record Reviewed: Yes Consults ordered or reviewed: Medicine consult appreciated Mental Status Examination - Cognitive Function Orientation: Person, Place, Situation, Time Memory: Intact Attention: WNL Concentration: WNL Association: WN Fund of Knowledge: WNL - Mood Mood: Depressed, Anxious - Affect Affect: Blunted, Depressed - Speech Speech: Soft - Formal Thought Process Formal Thought Process: No Impairment Psychotic Thoughts and Behaviors: No AH/VH/SI/HI - Suicidal Ideation Suicidal Ideation: No - Homicidal Ideation Homicidal Ideation: No Goal/Treatment Plan - Goal/Treatment Plan Need for Continued Stay: Remain at risks for inpatient hospitalization, Severe depression anxiety, Severe functional impairment Progress Toward Problem(s) and Goals/Treatment Plan: Major Depressive Disorder; Generalized Anxiety Disorder w/ Panic attacks; patient needs continued hospitalization for treatment, safety and stabilization. -Lexapro 10 mg PO Daily -Clonazepam 0.5 mg PO Q12 -Individual and group therapy -Medicine consult -Psychoeducation -Disposition planning Estimated Date of D/C: 05/04/17
[2017-04-29 16:48] LABS: HEMOGLOBIN 15.3 g/dL (12.0-16.0); MEAN CELL VOLUME 81.2 fl (81.0-99.0); MEAN CORPUSCULAR HEMOGLOBIN 26.8 pg (27.0-31.0); RBC 5.71 Mil/uL (3.80-5.20); RED CELL DISTRIBUTION WIDTH 13.5 % (11.5-14.5); WHITE BLOOD COUNT 10.8 K/uL (4.8-10.8)
[2017-04-29 17:06] LABS: MAGNESIUM 2.1 MG/DL (1.6-2.3)
--- NOTE | 2017-04-29 17:08 | PCM.RRT ---
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) Chest X-Ray: Yes CT Scan: No - Stat Labs Ordered KITCHENHAND Stat Labs Ordered: BMP, TROPONIN KITCHENHAND Other Labs Ordered: d dymer, mg, phos CPR started during KITCHENHAND?: No - Vital Signs Vital Signs: Rapid Response Vital Sign Blood Pressure 126/83 Pulse Rate 118 Respiratory Rate 21 Temperature 97.9 F Oxygen Saturation 100 - Time KITCHENHAND Ended Time KITCHENHAND Ended: 16:39 - Vital Signs at end of KITCHENHAND Vital Signs at end of KITCHENHAND: Rapid Response End Vital Sign Blood Pressure 118/76 Pulse Rate 110 Respiratory Rate 18 Temperature 97.9 F O2 Sat by Pulse Oximetry 100 - Recommendations KITCHENHAND Level of Care Recommendations: Remain in current setting I.Reason for KITCHENHAND - A) Acute Change in Patient: Subjective: KITCHENHAND called at 4:27 pm. 31 yo F with pmh gastric bypass, admitted to psychiatric unit for depression and suicidal ideation. KITCHENHAND was called due to pt having dyspnea and tachycardia to 129 bmp. On arrival, young female, appeared anxious. Awake, alert, speaking in full sentences. Vital signs: BP 126/83, HR 118, SpO2 100%. Pt was placed on O2 at 2L via nasal canula; SpO2 was 100%. On review of morning labs, she was hypokalemic at 3.2. EKG showed prolonged QTc and short VT interval BP at end of KITCHENHAND 137/91 mmHg, 114 bpm, SpO2 100%. A: 31 yo F with pmh gastric bypass, depression, KITCHENHAND called due to dyspnea and tachycardia. P: CBC CMP CXR Troponin D-Dimer PT/INR PTT Mg Phos Stop Zofran Stop Haldol Stop Sethapro Stewart Schultz APN notified. Case discussed with hospitalist Dr. Clifton, who was present at the KITCHENHAND. <Adrianne Clifton - Last Filed: 04/30/17 19:34> KITCHENHAND Nurse Assessment - Vital Signs Vital Signs: Rapid Response Vital Sign Blood Pressure 126/83 Pulse Rate 118 Respiratory Rate 21 Temperature 97.9 F Oxygen Saturation 100 - Vital Signs at end of KITCHENHAND Vital Signs at end of KITCHENHAND: Rapid Response End Vital Sign Blood Pressure 118/76 Pulse Rate 110 Respiratory Rate 18 Temperature 97.9 F O2 Sat by Pulse Oximetry 100 Attending/Attestation - Attestation I have personally seen and examined this patient.: Yes I have fully participated in the care of the patient.: Yes I have reviewed all pertinent clinical information, including history, physical exam and plan: Yes Notes (Text): 04/30/17 19:34 SEEN EXAMINED DISCUSSED WITH RESIDENT DR. MARÍA DUFFY. AGREE WITH FINDINGS AND PLAN ABOVE. DIMER FOLLOWED AND NEGATIVE. NO FURTHER DIAGNOSTIC STUDIES INDICATED. PATIENT HD STABLE AND NO LONGER IN NAD.
[2017-04-29 17:12] LABS: ALB/GLOB RATIO 1.3 (1.0-2.1); ALBUMIN 4.5 g/dL (3.5-5.0); ALT/SGPT 57 U/L (9-52); AST/SGOT 49 U/L (14-36); BLOOD UREA NITROGEN 9 mg/dl (7-17); CALCIUM 9.8 mg/dL (8.4-10.2); GFR AFRICAN-AMERICAN > 60; GFR NON-AFRICAN AMERICAN > 60
[2017-04-29 17:13] LABS: ALB/GLOB RATIO 1.3 (1.0-2.1); ALBUMIN 4.5 g/dL (3.5-5.0); ALT/SGPT 60 U/L (9-52); AST/SGOT 50 U/L (14-36); BLOOD UREA NITROGEN 9 mg/dl (7-17); GFR AFRICAN-AMERICAN > 60; GFR NON-AFRICAN AMERICAN > 60
--- NOTE | 2017-04-29 17:14 | RAD ---
HISTORY: abnormal ekg COMPARISON: 04/23/2017 FINDINGS: LUNGS: No active pulmonary disease. PLEURA: No significant pleural effusion identified, no pneumothorax apparent. CARDIOVASCULAR: Normal. OSSEOUS STRUCTURES: No significant abnormalities. VISUALIZED UPPER ABDOMEN: Normal. OTHER FINDINGS: None. IMPRESSION: No active disease. No change
[2017-04-29 18:00] LABS: INR 1.2 (0.9-1.2); PARTIAL THROMBOPLASTIN TIME 31.1 Seconds (25.6-37.1); PROTHROMBIN TIME 13.8 Seconds (9.8-13.1)
[2017-04-29] MEDS: Potassium Chloride 20 mEq/15 ml LIQ UD PO SCH (18:38)
--- NOTE | 2017-04-29 19:09 | CP.PCM.CON ---
History of Present Illness - History of Present Illness History of Present Illness: I was asked to evaluate patient by Dr Schultz and Dr Morrell. Patient is a 31 year old female with history of depression, suicidal ideation and hypokalemia. She presented to ER found to be serverly hypokalemic. In that setting QT was prolonged. She has normal left ventricular function. QT prolongation improved with correction of K. The patient was noted to have palpitaitons and dyspnea. EKG noted. Review of Systems - Constitutional Constitutional: absent: As Per HPI, Anorexia, Chills, Daytime Sleepiness, Excessive Sweating, Fatigue, Fever, Frequent Falls, Headache, Increased Appetite , Lethargy, Malaise, Night Sweats, Snoring, Sleep Apnea, Weight Gain, Weight Loss, Weakness, Other - EENT Eyes: absent: As Per HPI, Blind Spots, Blurred Vision, Change in Vision, Decreased Night Vision, Diplopia, Discharge, Dry Eye, Exophthalmos, Floaters, Irritation, Itchy Eyes, Loss of Peripheral Vision, Pain, Photophobia, Requires Corrective Lenses, Sees Flashes, Spots in Vision, Tunnel Vision, Other Visual Disturbances, Loss of Vision, Other Ears: absent: As Per HPI, Decreased Hearing, Ear Discharge, Ear Pain, Tinnitus, Abnormal Hearing, Disequilibrium, Dizziness, Other Nose/Mouth/Throat: absent: As Per HPI, Epistaxis, Nasal Congestion, Nasal Discharge, Nasal Obstruction, Nasal Trauma, Nose Pain, Post Nasal Drip, Sinus Pain, Sinus Pressure, Bleeding Gums, Change in Voice, Dental Pain, Dry Mouth, Dysphagia, Halitosis, Hoarsness, Lip Swelling, Mouth Lesions, Mouth Pain, Odynophagia, Sore Throat, Throat Swelling, Tongue Swelling, Facial Pain, Neck Pain, Neck Mass, Other - Cardiovascular Cardiovascular: Dyspnea - Respiratory Respiratory: Cough, Excessive Mucous Production - Gastrointestinal Gastrointestinal: Change in Bowel Habits - Genitourinary Genitourinary: absent: As Per HPI, Change in Urinary Stream, Difficulty Urinating, Dysuria, Flank Pain, Hematuria, Pyuria, Nocturia, Urinary Incontinence, Urinary Frequency, Urinary Hesitance, Urinary Urgency, Voiding Freq/Small Amts, Freq UTI, Hx Renal/Bladder Calculi, Hx /Renal Surgery, Bladder Distension, Other - Menstruation Menstruation: absent: As Per HPI, Amenorrhea, Amenorrhea/ Control, Currently Menstual, Cycle <21 Days, Cycle >35 Days, Cycle Variable, Menses 1-7 Days, Menses >/= 8 Days, Menses Variable, Cycle > 4 Weeks Between, No Menses for 6 Months, Heavy Menses, Light Menses, Normal Menses, Spotting Between Cycles , S/P Hysterectomy, Menopausal, Post Menopausal, Premenarche, Abnormal Vaginal Bleeding, Dysmenorrhea, Other - Musculoskeletal Musculoskeletal: absent: As Per HPI, Abnormal Gait, Arthralgias, Atrophy, Back Pain, Deformity, Joint Swelling, Limited Range of Motion, Loss of Height, Muscle Cramps, Muscle Weakness, Myalgias, Neck Pain, Numbness, Radiating Pain into Limb, Stiffness, Tingling, Other - Neurological Neurological: absent: As Per HPI, Abnormal Gait, Abnormal Hearing, Abnormal Movements, Abnormal Speech, Behavioral Changes, Burning Sensations, Confusion, Convulsions, Disequilibrium, Dizziness, Numbness, Focal Weakness, Frequent Falls , Headaches, Lack of Coordination, Loss of Vision, Memory Loss, Paresthesias, Radicular Pain, Restless Legs, Sensory Deficit, Syncope, Tingling, Tremor, Vertigo, Weakness, Other Visual Disturbances, Other - Psychiatric Psychiatric: absent: As Per HPI, Abnormal Sleep Pattern, Anhedonia, Anxiety, Auditory Hallucinations, Behavioral Changes, Change in Appetite, Change in Libido, Confusion, Depression, Difficulty Concentrating, Hallucinations, Homicidal Ideation, Hopelessness, Irritability, Memory Loss, Mood Swings, Panic Attacks, Paranoia, Suicidal Ideation, Visual Hallucinations, Tactile Hallucinations, Other - Endocrine Endocrine: absent: As Per HPI, Change in Body Appearance, Change in Libido, Cold Intolorance, Deepening of Voice, Excessive Sweating, Fatigue, Flushing, Heat Intolorance, Increase in Ring/Shoe/Hat Size, Palpitations, Polydipsia, Polyphagia, Polyuria, Other - Hematologic/Lymphatic Hematologic: absent: As Per HPI, Easy Bleeding, Easy Bruising, Lymphadenopathy, Other Past Patient History - Past Medical History & Family History Past Medical History?: No - Past Social History Smoking Status: Never Smoked - CARDIAC Hx Cardiac Disorders: No - PULMONARY Hx Tuberculosis: No - NEUROLOGICAL HX Cerebrovascular Accident: No Hx Seizures: No - HEMATOLOGICAL/ONCOLOGICAL Hx AIDS: No Hx Human Immunodeficiency Virus (HIV): No - MUSCULOSKELETAL/RHEUMATOLOGICAL Hx Falls: Yes - GENITOURINARY/GYNECOLOGICAL Hx Sexually Transmitted Disorders: No - PSYCHIATRIC Hx Substance Use: No - SURGICAL HISTORY Hx Surgeries: Yes Hx Gastric Bypass Surgery: Yes (11/16) - ANESTHESIA Hx Anesthesia: Yes Hx Anesthesia Reactions: No Hx Malignant Hyperthermia: No Meds Allergies/Adverse Reactions: Allergies Allergy/AdvReac Type Severity Reaction Status Date / Time No Known Allergies Allergy Verified 04/23/17 18:21 - Medications Medications: Current Medications Acetaminophen (Tylenol 325mg Tab) 650 mg PO Q4 PRN PRN Reason: pain Al Hydrox/Mg Hydrox/Simethicone (Maalox Plus 30 Ml) 30 ml PO Q4 PRN PRN Reason: Dyspepsia Clonazepam (Klonopin) 0.5 mg PO Q12 [facility] Diphenhydramine HCl (Benadryl) 50 mg IM Q6 PRN PRN Reason: Extrapyramidal S/S Unable PO Diphenhydramine HCl (Benadryl) 50 mg PO Q6 PRN PRN Reason: Extrapyramidal Symptoms Last Admin: 04/28/17 22:52 Dose: 50 mg Escitalopram Oxalate (Lexapro) 10 mg PO DAILY [facility] Last Admin: 04/29/17 09:04 Dose: 10 mg Famotidine (Pepcid) 20 mg PO DAILY [facility] Last Admin: 04/29/17 09:05 Dose: 20 mg Haloperidol (Haldol) 5 mg PO Q4 PRN PRN Reason: Agitation Haloperidol Lactate (Haldol) 5 mg IM Q4 PRN PRN Reason: Agitation, Unable to Take PO Lorazepam (Ativan) 2 mg IM Q4 PRN PRN Reason: Anxiety/Agitation,Unable PO Lorazepam (Ativan) 2 mg PO Q4 PRN PRN Reason: Anxiety/Agitation Magnesium Hydroxide (Milk Of Magnesia) 30 ml PO HS PRN PRN Reason: Constipation Multivitamins/Vitamin C (Multi-Delyn Liquid) 15 ml PO DAILY [facility] Potassium Chloride (Potassium Chloride Oral Soln) 20 meq PO DAILY [facility] Last Admin: 04/29/17 18:38 Dose: 20 meq Results - Vital Signs Recent Vital Signs: Last Vital Signs Temp 98.2 F 04/29/17 15:50 Pulse 90 04/29/17 15:50 Resp 20 04/29/17 15:50 BP 127/93 H 04/29/17 15:50 Pulse Ox - Labs Result Diagrams: 04/29/17 16:39 04/29/17 16:39 Labs: Laboratory Results - last 24 hr 04/29/17 04/29/17 04/29/17 16:39 16:39 16:39 WBC 10.8 RBC 5.71 H Hgb 15.3 Hct 46.4 MCV 81.2 MCH 26.8 L MCHC 33.0 RDW 13.5 Plt Count 299 PT INR APTT D-Dimer, Quantitative Sodium 133 133 Potassium 3.1 L 3.1 L Chloride 89 L 89 L Carbon Dioxide 33 H 35 H Anion Gap 14 12 BUN 9 9 Creatinine 0.7 0.7 Est GFR ( Amer) > 60 > 60 Est GFR (Non-Af Amer) > 60 > 60 Random Glucose 119 H 121 H Calcium 9.8 10.0 Phosphorus Magnesium Total Bilirubin 1.1 1.1 AST 49 H D 50 H ALT 57 H 60 H Alkaline Phosphatase 66 69 Troponin I < 0.0120 Total Protein 7.8 8.0 Albumin 4.5 4.5 Globulin 3.4 3.5 Albumin/Globulin Ratio 1.3 1.3 04/29/17 04/29/17 16:56 17:01 WBC RBC Hgb Hct MCV MCH MCHC RDW Plt Count PT 13.8 H INR 1.2 APTT 31.1 D-Dimer, Quantitative 159 Sodium Potassium Chloride Carbon Dioxide Anion Gap BUN Creatinine Est GFR ( Amer) Est GFR (Non-Af Amer) Random Glucose Calcium Phosphorus 3.4 Magnesium 2.1 Total Bilirubin AST ALT Alkaline Phosphatase Troponin I Total Protein Albumin Globulin Albumin/Globulin Ratio - EKG Data EKG Interpreted by: Myself EKG shows normal: Sinus rhythm Assessment & Plan (1) Prolonged QT interval Assessment and Plan: echo reveals normal left ventricular function. QT correlates with hypokalemia. recommend repletion to K of 4. Status: Acute
[2017-04-30 07:53] LABS: ALB/GLOB RATIO 1.2 (1.0-2.1); ALT/SGPT 59 U/L (9-52); AST/SGOT 37 U/L (14-36); BLOOD UREA NITROGEN 9 mg/dl (7-17); CALCIUM 9.8 mg/dL (8.4-10.2); GFR AFRICAN-AMERICAN > 60; GFR NON-AFRICAN AMERICAN > 60
--- NOTE | 2017-04-30 08:01 | CP.PCM.PN ---
Subjective - Date & Time of Evaluation Date of Evaluation: 04/30/17 Time of Evaluation: 08:01 - Subjective Subjective: pt doing well, still depress/anxious. had desktop support specialist for tachycardia yesterday. k 3,1 today k 3,.3. hr wnl. seen by cardio w/ no new orders. ekg noted. pt mela po and potassium supp today Objective - Vital Signs/Intake and Output Vital Signs (last 24 hours): Temp Pulse Resp BP Pulse Ox 97.6 F 108 H 19 125/80 04/30/17 06:00 04/30/17 06:00 04/30/17 06:00 04/30/17 06:00 - Medications Medications: Current Medications Acetaminophen (Tylenol 325mg Tab) 650 mg PO Q4 PRN PRN Reason: pain Al Hydrox/Mg Hydrox/Simethicone (Maalox Plus 30 Ml) 30 ml PO Q4 PRN PRN Reason: Dyspepsia Clonazepam (Klonopin) 0.5 mg PO Q12 [facility] Last Admin: 04/29/17 21:35 Dose: 0.5 mg Diphenhydramine HCl (Benadryl) 50 mg IM Q6 PRN PRN Reason: Extrapyramidal S/S Unable PO Diphenhydramine HCl (Benadryl) 50 mg PO Q6 PRN PRN Reason: Extrapyramidal Symptoms Last Admin: 04/28/17 22:52 Dose: 50 mg Escitalopram Oxalate (Lexapro) 10 mg PO DAILY [facility] Last Admin: 04/29/17 09:04 Dose: 10 mg Famotidine (Pepcid) 20 mg PO DAILY [facility] Last Admin: 04/29/17 09:05 Dose: 20 mg Haloperidol (Haldol) 5 mg PO Q4 PRN PRN Reason: Agitation Haloperidol Lactate (Haldol) 5 mg IM Q4 PRN PRN Reason: Agitation, Unable to Take PO Lorazepam (Ativan) 2 mg IM Q4 PRN PRN Reason: Anxiety/Agitation,Unable PO Lorazepam (Ativan) 2 mg PO Q4 PRN PRN Reason: Anxiety/Agitation Magnesium Hydroxide (Milk Of Magnesia) 30 ml PO HS PRN PRN Reason: Constipation Multivitamins/Vitamin C (Multi-Delyn Liquid) 15 ml PO DAILY [facility] Potassium Chloride (Potassium Chloride Oral Soln) 20 meq PO DAILY [facility] Last Admin: 04/29/17 18:38 Dose: 20 meq - Labs Labs: 04/29/17 16:39 04/30/17 06:40 PT 13.8 Seconds (9.8-13.1) H 04/29/17 17:01 INR 1.2 (0.9-1.2) 04/29/17 17:01 APTT 31.1 Seconds (25.6-37.1) 04/29/17 17:01 - Constitutional Appears: Well, Non-toxic, No Acute Distress - Head Exam Head Exam: ATRAUMATIC, NORMAL INSPECTION, NORMOCEPHALIC - Eye Exam Eye Exam: EOMI, Normal appearance, PERRL Pupil Exam: NORMAL ACCOMODATION, PERRL - ENT Exam ENT Exam: Mucous Membranes Moist, Normal Exam - Neck Exam Neck Exam: Full ROM, Normal Inspection. absent: Lymphadenopathy - Respiratory Exam Respiratory Exam: Clear to Ausculation Bilateral, NORMAL BREATHING PATTERN - Cardiovascular Exam Cardiovascular Exam: REGULAR RHYTHM, RRR, +S1, +S2. absent: Murmur - GI/Abdominal Exam GI & Abdominal Exam: Soft, Normal Bowel Sounds. absent: Tenderness - Extremities Exam Extremities Exam: Full ROM, Normal Capillary Refill, Normal Inspection. absent : Joint Swelling, Pedal Edema - Back Exam Back Exam: NORMAL INSPECTION - Neurological Exam Neurological Exam: Alert, Awake, CN II-XII Intact, Normal Gait, Oriented x3 - Psychiatric Exam Psychiatric exam: Normal Affect, Normal Mood - Skin Skin Exam: Dry, Intact, Normal Color, Warm Assessment and Plan (1) Major depressive disorder Status: Acute (2) DVT prophylaxis Status: Acute (3) Hypokalemia Status: Acute (4) Nausea & vomiting Status: Acute - Assessment and Plan (Free Text) Assessment: (1) Major depressive disorder Assessment and Plan: psy meds, interventions,therapies Status: Acute (2) DVT prophylaxis Assessment and Plan: ambulation Status: Acute (3) Hypokalemia Assessment and Plan: resolved, r/t n/v kdur daily potassium rich foods Status: Acute (4) Nausea & vomiting Assessment and Plan: zofran prn. po as mela outpt bariatric surgery f/u Status: Acute 5-tachcyardia-?? r/t anxiety, controlled today, ddimer wnl. 6-prolonged qtc-r/t hypokalemia, repeta ekg in am, cardio
[2017-04-30] MEDS: Potassium Chloride 20 mEq/15 ml LIQ UD PO SCH (08:59)
[2017-04-30] MEDS: Multi Vitamins 15 mL UD Oral Solution PO SCH (08:59)
--- NOTE | 2017-04-30 09:25 | CARD ---
APPROVED REPORT EKG Measurement Heart [id number] 104P [id number] <Conclusion> Sinus tachycardia with short IN Nonspecific T wave abnormality Prolonged QT Abnormal ECG
--- NOTE | 2017-04-30 11:32 | PCM.PYCHPN ---
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 Patient seen and evaluated by medicine consult and cardiology consult. Patient continues to report severe depression w/ constricted affect, low motivation, anhedonia, poor sleep/appetite. We discussed stopping Lexapro and starting Wellbutrin, Patient given handout with drug information. r/b/se reviewed. Patient encouraged to attend groups. She denies active suicidal ideation but has passive wishes that she were . NO AH/VH/HI. Medication Change: Yes (Stop Lexapro, start wellbutrin) Medical Record Reviewed: Yes Consults ordered or reviewed: Medicine consult appreciated, Cardiology consult appreciated Mental Status Examination - Cognitive Function Orientation: Person, Place, Situation, Time Memory: Intact Attention: WNL Concentration: WNL Association: WNL Fund of Knowledge: WN Decription of patient's judgement and insights: Fair I/J - Mood Mood: Depressed, Anxious - Affect Affect: Blunted, Depressed - Speech Speech: Soft - Formal Thought Process Formal Thought Process: No Impairment Psychotic Thoughts and Behaviors: No AH/VH - Suicidal Ideation Suicidal Ideation: No - Homicidal Ideation Homicidal Ideation: No Goal/Treatment Plan - Goal/Treatment Plan Need for Continued Stay: Remain at risks for inpatient hospitalization, Severe depression anxiety, Severe functional impairment Progress Toward Problem(s) and Goals/Treatment Plan: Major Depressive Disorder; Generalized Anxiety Disorder w/ Panic attacks; patient needs continued hospitalization for treatment, safety and stabilization. -Stop Lexapro in case this medication is worsening hyponatremia (now improved) or cardiac arrhythmia -Start Wellbutrin 75 mg PO Daily -Continue Clonazepam 0.5 mg PO Q12 -Individual and group therapy -Medicine consult -Psychoeducation -Disposition planning Estimated Date of D/C: 05/05/17 - Smoking Cessation Smoking Cessation Initiated: No Reason for not providing: Not indicated
[2017-05-01] MEDS: Potassium Chloride 20 mEq/15 ml LIQ UD PO SCH (08:36)
[2017-05-01] MEDS: Multi Vitamins 15 mL UD Oral Solution PO SCH (08:36)
--- NOTE | 2017-05-01 10:41 | PCM.PYCHPN ---
Psychiatric Progress Note - Psychiatric Progress Note Patient seen today, length of contact: Patient evaluated, case discussed w/ team , chart reviewed Patient Chief Complaint: I am reading a book it helps my mood Problems Identified/Issues Discussed: pt seen in bed, reported feeling less depressed, anxious at times, denied side effects of medications no reported changes in sleep or appetite denied any current suicidal ideations DSM 5 Symptoms Update: depression generalized anxiety Medication Change: No Medical Record Reviewed: Yes Mental Status Examination - Cognitive Function Orientation: Person, Place, Situation, Time Memory: Intact Attention: WNL Concentration: WNL Association: WNL Fund of Knowledge: WNL - Mood Mood: Depressed, Anxious - Affect Affect: Blunted, Depressed - Speech Speech: Soft - Formal Thought Process Formal Thought Process: No Impairment - Suicidal Ideation Suicidal Ideation: No - Homicidal Ideation Homicidal Ideation: No Goal/Treatment Plan - Goal/Treatment Plan Need for Continued Stay: Remain at risks for inpatient hospitalization, Severe depression anxiety, Severe functional impairment Progress Toward Problem(s) and Goals/Treatment Plan: continue with wellbutrin K level noted 3.3 medical consult noted, qt prolongation due to hypokalemia pt currently on K supplement , will follow up on chemistry Estimated Date of D/C: 05/05/17
[2017-05-01 15:51] LABS: ALB/GLOB RATIO 1.3 (1.0-2.1); ALBUMIN 4.4 g/dL (3.5-5.0); ALT/SGPT 63 U/L (9-52); AST/SGOT 35 U/L (14-36); BLOOD UREA NITROGEN 9 mg/dl (7-17); CALCIUM 10.5 mg/dL (8.4-10.2); GFR AFRICAN-AMERICAN > 60; GFR NON-AFRICAN AMERICAN > 60
[2017-05-01] MEDS: Metoprolol Succinate 25 mg XL Tab PO SCH (18:25)
[2017-05-02] MEDS: Potassium Chloride 20 mEq/15 ml LIQ UD PO SCH (09:14)
[2017-05-02] MEDS: Multi Vitamins 15 mL UD Oral Solution PO SCH (09:14)
[2017-05-02] MEDS: Metoprolol Succinate 25 mg XL Tab PO SCH (09:15)
--- NOTE | 2017-05-02 10:22 | PCM.PYCHPN ---
Psychiatric Progress Note - Psychiatric Progress Note Patient seen today, length of contact: Patient evaluated, case discussed w/ team , chart reviewed Patient Chief Complaint: I feel better today a lot of positive thoughts Problems Identified/Issues Discussed: pt seen in bed, reported better mood today, brighter affect, able to verbalize positive ideas about things she would need to accomplish on discharge denied side effects of medications no reported changes in sleep or appetite denied any current suicidal ideations K 05/01 noted 3.7, EKG continues to show abnormality of T wave, pt however is asymptomatic DSM 5 Symptoms Update: major depression generalized anxiety disorder Medication Change: No Medical Record Reviewed: Yes Mental Status Examination - Cognitive Function Orientation: Person, Place, Situation, Time Memory: Intact Attention: WNL Concentration: WNL Association: WNL Fund of Knowledge: WNL - Mood Mood: Neutral - Affect Affect: Blunted, Depressed - Speech Speech: Soft - Formal Thought Process Formal Thought Process: No Impairment - Suicidal Ideation Suicidal Ideation: No - Homicidal Ideation Homicidal Ideation: No Goal/Treatment Plan - Goal/Treatment Plan Need for Continued Stay: Remain at risks for inpatient hospitalization, Severe depression anxiety, Severe functional impairment Progress Toward Problem(s) and Goals/Treatment Plan: continue with wellbutrin K level noted 3.7 on EKG 05/01/17 showed abnormal T wave, follow up with family practice Estimated Date of D/C: 05/05/17
--- NOTE | 2017-05-02 10:33 | CARD ---
APPROVED REPORT EKG Measurement Heart [id number] CO [id number] [id number] <Conclusion> Sinus tachycardia Rightward axis Low voltage QRS Nonspecific T wave abnormality Abnormal ECG
--- NOTE | 2017-05-02 11:10 | CP.PCM.PN ---
Subjective - Date & Time of Evaluation Date of Evaluation: 05/02/17 Time of Evaluation: 11:00 - Subjective Subjective: notified of tachycardia yesterday. Potassium noted. orders given yesterday for Toprol XL 25 mg daily. Objective - Vital Signs/Intake and Output Vital Signs (last 24 hours): Temp Pulse Resp BP Pulse Ox 97.7 F 106 H 18 121/65 05/02/17 06:00 05/02/17 09:15 05/02/17 06:00 05/02/17 09:15 - Medications Medications: Current Medications Acetaminophen (Tylenol 325mg Tab) 650 mg PO Q4 PRN PRN Reason: pain Al Hydrox/Mg Hydrox/Simethicone (Maalox Plus 30 Ml) 30 ml PO Q4 PRN PRN Reason: Dyspepsia Bupropion HCl (Wellbutrin) 75 mg PO DAILY [facility] Last Admin: 05/02/17 09:16 Dose: 75 mg Clonazepam (Klonopin) 0.5 mg PO Q12 [facility] Last Admin: 05/02/17 09:17 Dose: 0.5 mg Diphenhydramine HCl (Benadryl) 50 mg IM Q6 PRN PRN Reason: Extrapyramidal S/S Unable PO Diphenhydramine HCl (Benadryl) 50 mg PO Q6 PRN PRN Reason: Extrapyramidal Symptoms Last Admin: 04/28/17 22:52 Dose: 50 mg Famotidine (Pepcid) 20 mg PO DAILY [facility] Last Admin: 05/02/17 09:14 Dose: 20 mg Lorazepam (Ativan) 2 mg IM Q4 PRN PRN Reason: Anxiety/Agitation,Unable PO Lorazepam (Ativan) 2 mg PO Q4 PRN PRN Reason: Anxiety/Agitation Magnesium Hydroxide (Milk Of Magnesia) 30 ml PO HS PRN PRN Reason: Constipation Metoprolol Succinate (Toprol Xl) 25 mg PO DAILY [facility] Last Admin: 05/02/17 09:15 Dose: 25 mg Multivitamins/Vitamin C (Multi-Delyn Liquid) 15 ml PO DAILY [facility] Last Admin: 05/02/17 09:14 Dose: 15 ml Potassium Chloride (Potassium Chloride Oral Soln) 20 meq PO DAILY [facility] Last Admin: 05/02/17 09:14 Dose: 20 meq - Labs Labs: 04/29/17 16:39 05/01/17 15:24 PT 13.8 Seconds (9.8-13.1) H 04/29/17 17:01 INR 1.2 (0.9-1.2) 04/29/17 17:01 APTT 31.1 Seconds (25.6-37.1) 04/29/17 17:01 Assessment and Plan (1) Prolonged QT interval Status: Acute
[2017-05-03 05:56] VITALS: RESP 18
[2017-05-03 06:29] LABS: BASO # 0.1 K/uL (0.0-0.2); BASO % 0.6 % (0.0-2.0); EOS # 0.2 K/uL (0.0-0.7); EOS % 1.4 % (0.0-4.0); HEMOGLOBIN 14.1 g/dL (12.0-16.0); LYMPH % 37.6 % (20.0-40.0); MEAN CELL VOLUME 79.9 fl (81.0-99.0); MEAN CORPUSCULAR HEMOGLOBIN 27.4 pg (27.0-31.0); MEAN CORPUSCULAR HGB CONC 34.3 g/dL (33.0-37.0); MEAN PLATELET VOLUME 7.8 fl (7.2-11.7); MONO # 0.8 K/uL (0.0-0.8); MONO % 7.8 % (0.0-10.0); NEUT # 5.6 K/uL (1.8-7.0); NEUT % 52.6 % (50.0-75.0); NRBC % 0.1 % (0.0-0.0); RBC 5.13 Mil/uL (3.80-5.20); RED CELL DISTRIBUTION WIDTH 13.3 % (11.5-14.5); WHITE BLOOD COUNT 10.6 K/uL (4.8-10.8)
[2017-05-03 06:46] LABS: ALB/GLOB RATIO 1.2 (1.0-2.1); ALBUMIN 3.9 g/dL (3.5-5.0); ALT/SGPT 60 U/L (9-52); AST/SGOT 34 U/L (14-36); BLOOD UREA NITROGEN 11 mg/dl (7-17); CALCIUM 9.8 mg/dL (8.4-10.2); GFR AFRICAN-AMERICAN > 60; GFR NON-AFRICAN AMERICAN > 60
--- NOTE | 2017-05-03 08:46 | PCM.PYCHPN ---
Psychiatric Progress Note - Psychiatric Progress Note Patient seen today, length of contact: Patient evaluated, case discussed w/ team , chart reviewed Patient Chief Complaint: "I'm depressed." Problems Identified/Issues Discussed: Patient reports that her mood is starting to improve. She denies adverse effects to Wellbutrin. She continues to have poor appettie. She is more goal oriented. NO AH/VH/SI/HI. Medicine consult appreciated. Medication Change: No Medical Record Reviewed: Yes Consults ordered or reviewed: Medicine consult appreciated, Cardiology consult appreciated Mental Status Examination - Cognitive Function Orientation: Person, Place, Situation, Time Memory: Intact Attention: WNL Concentration: WNL Association: [facility] Fund of Knowledge: [facility] Decription of patient's judgement and insights: Fair I/J - Mood Mood: Depressed - Affect Affect: Constricted - Speech Speech: Soft - Formal Thought Process Formal Thought Process: No Impairment Psychotic Thoughts and Behaviors: No AH/VH/paranoia/delusions - Suicidal Ideation Suicidal Ideation: No - Homicidal Ideation Homicidal Ideation: No Goal/Treatment Plan - Goal/Treatment Plan Need for Continued Stay: Remain at risks for inpatient hospitalization, Severe depression anxiety, Severe functional impairment Progress Toward Problem(s) and Goals/Treatment Plan: Major Depressive Disorder; Generalized Anxiety Disorder w/ Panic attacks; patient reports that her mood is starting to improve; no current passive or suicidal ideation/plan/intent. -Continue Wellbutrin 75 mg PO Daily -Continue Clonazepam 0.5 mg PO Q12 -Individual and group therapy -Medicine consult appreciated -Psychoeducation -Disposition planning Estimated Date of D/C: 05/05/17 - Smoking Cessation Smoking Cessation Initiated: No Reason for not providing: Not indicated
[2017-05-03] MEDS: Metoprolol Succinate 25 mg XL Tab PO SCH (10:06)
[2017-05-03] MEDS: Potassium Chloride 20 mEq/15 ml LIQ UD PO SCH (10:06)
[2017-05-03] MEDS: Multi Vitamins 15 mL UD Oral Solution PO SCH (10:07)
--- NOTE | 2017-05-03 11:49 | CP.PCM.PN ---
Subjective - Date & Time of Evaluation Date of Evaluation: 05/03/17 Time of Evaluation: 11:48 - Subjective Subjective: pt doing well, no f/c, nv/d. no pain. for dc from psych tomorrow k 3.7 hr 90s on metoprolol Objective - Vital Signs/Intake and Output Vital Signs (last 24 hours): Temp Pulse Resp BP Pulse Ox 97.3 F L 93 H 18 114/73 05/03/17 05:55 05/03/17 10:06 05/03/17 05:55 05/03/17 10:06 - Medications Medications: Current Medications Acetaminophen (Tylenol 325mg Tab) 650 mg PO Q4 PRN PRN Reason: pain Al Hydrox/Mg Hydrox/Simethicone (Maalox Plus 30 Ml) 30 ml PO Q4 PRN PRN Reason: Dyspepsia Bupropion HCl (Wellbutrin) 75 mg PO DAILY [facility] Last Admin: 05/03/17 10:07 Dose: 75 mg Clonazepam (Klonopin) 0.5 mg PO Q12 [facility] Last Admin: 05/03/17 10:05 Dose: 0.5 mg Diphenhydramine HCl (Benadryl) 50 mg IM Q6 PRN PRN Reason: Extrapyramidal S/S Unable PO Diphenhydramine HCl (Benadryl) 50 mg PO Q6 PRN PRN Reason: Extrapyramidal Symptoms Last Admin: 04/28/17 22:52 Dose: 50 mg Famotidine (Pepcid) 20 mg PO DAILY [facility] Last Admin: 05/03/17 10:07 Dose: 20 mg Lorazepam (Ativan) 2 mg IM Q4 PRN PRN Reason: Anxiety/Agitation,Unable PO Lorazepam (Ativan) 2 mg PO Q4 PRN PRN Reason: Anxiety/Agitation Magnesium Hydroxide (Milk Of Magnesia) 30 ml PO HS PRN PRN Reason: Constipation Metoprolol Succinate (Toprol Xl) 25 mg PO DAILY [facility] Last Admin: 05/03/17 10:06 Dose: 25 mg Multivitamins/Vitamin C (Multi-Delyn Liquid) 15 ml PO DAILY [facility] Last Admin: 05/03/17 10:07 Dose: 15 ml Potassium Chloride (Potassium Chloride Oral Soln) 20 meq PO DAILY [facility] Last Admin: 05/03/17 10:06 Dose: 20 meq - Labs Labs: 05/03/17 06:10 05/03/17 06:10 PT 13.8 Seconds (9.8-13.1) H 04/29/17 17:01 INR 1.2 (0.9-1.2) 04/29/17 17:01 APTT 31.1 Seconds (25.6-37.1) 04/29/17 17:01 - Constitutional Appears: Well, Non-toxic, No Acute Distress - Head Exam Head Exam: ATRAUMATIC, NORMAL INSPECTION, NORMOCEPHALIC - Eye Exam Eye Exam: EOMI, Normal appearance, PERRL Pupil Exam: NORMAL ACCOMODATION, PERRL - ENT Exam ENT Exam: Mucous Membranes Moist, Normal Exam - Neck Exam Neck Exam: Full ROM, Normal Inspection. absent: Lymphadenopathy - Respiratory Exam Respiratory Exam: Clear to Ausculation Bilateral, NORMAL BREATHING PATTERN - Cardiovascular Exam Cardiovascular Exam: REGULAR RHYTHM, RRR, +S1, +S2. absent: Murmur - GI/Abdominal Exam GI & Abdominal Exam: Soft, Normal Bowel Sounds. absent: Tenderness - Extremities Exam Extremities Exam: Full ROM, Normal Capillary Refill, Normal Inspection. absent : Joint Swelling, Pedal Edema - Back Exam Back Exam: NORMAL INSPECTION - Neurological Exam Neurological Exam: Alert, Awake, CN II-XII Intact, Normal Gait, Oriented x3 - Psychiatric Exam Psychiatric exam: Normal Affect, Normal Mood - Skin Skin Exam: Dry, Intact, Normal Color, Warm Assessment and Plan (1) Major depressive disorder Status: Acute (2) DVT prophylaxis Status: Acute (3) Hypokalemia Status: Acute (4) Nausea & vomiting Status: Acute - Assessment and Plan (Free Text) Assessment: (1) Major depressive disorder Assessment and Plan: psy meds, interventions,therapies Status: Acute (2) DVT prophylaxis Assessment and Plan: ambulation Status: Acute (3) Hypokalemia Assessment and Plan: resolved, r/t n/v kdur daily potassium rich foods Status: Acute (4) Nausea & vomiting Assessment and Plan: zofran prn. po as mela outpt bariatric surgery f/u Status: Acute 5-tachcyardia-?? r/t anxiety, controlled today, ddimer wnl. controlled w/ metoprolol, follow outpt 6-prolonged qtc-r/t hypokalemia, repeta ekg in am, cardio, will follow outpt, please call [phone] for appt, [address] [place] [address], [place], [place]
[2017-05-04 05:40] VITALS: BP 102/60; PULSE 98; TEMP 97.7
[2017-05-04 06:32] LABS: BASO # 0.1 K/uL (0.0-0.2); BASO % 0.7 % (0.0-2.0); EOS # 0.2 K/uL (0.0-0.7); EOS % 2.1 % (0.0-4.0); HEMOGLOBIN 13.3 g/dL (12.0-16.0); LYMPH % 39.9 % (20.0-40.0); MEAN CELL VOLUME 79.6 fl (81.0-99.0); MEAN CORPUSCULAR HEMOGLOBIN 27.3 pg (27.0-31.0); MEAN CORPUSCULAR HGB CONC 34.3 g/dL (33.0-37.0); MEAN PLATELET VOLUME 7.9 fl (7.2-11.7); MONO # 0.8 K/uL (0.0-0.8); MONO % 7.7 % (0.0-10.0); NEUT % 49.6 % (50.0-75.0); NRBC % 0.1 % (0.0-0.0); RBC 4.88 Mil/uL (3.80-5.20); RED CELL DISTRIBUTION WIDTH 13.6 % (11.5-14.5); WHITE BLOOD COUNT 10.1 K/uL (4.8-10.8)
[2017-05-04 06:49] LABS: ALB/GLOB RATIO 1.2 (1.0-2.1); ALBUMIN 3.6 g/dL (3.5-5.0); ALT/SGPT 58 U/L (9-52); AST/SGOT 30 U/L (14-36); BLOOD UREA NITROGEN 10 mg/dl (7-17); CALCIUM 9.6 mg/dL (8.4-10.2); GFR AFRICAN-AMERICAN > 60; GFR NON-AFRICAN AMERICAN > 60
[2017-05-04] MEDS: Potassium Chloride 20 mEq/15 ml LIQ UD PO SCH (09:26)
[2017-05-04] MEDS: Multi Vitamins 15 mL UD Oral Solution PO SCH (09:27)
[2017-05-04] MEDS: Metoprolol Succinate 25 mg XL Tab PO SCH ×2 (09:27→12:07)
--- NOTE | 2017-05-04 09:51 | PCM.PYCHDC ---
Mental Status Examination - Mental Status Examination Orientation: Person, Place, Situation, Time Memory: Intact Mood: Neutral Affect: Broad Speech: Appropriate Attention: WNL Concentration: WNL Association: WNL Fund of Knowledge: WNL Formal Thought Process: No Impairment Description of patient's judgement and insight: Good I/J Psychotic Thoughts and Behaviors: No AH/VH/paranoia/delusions Suicidal Ideation: No Current Homicidal Ideation?: No Discharge Summary - Discharge Note Reason for Hospitalization: HPI: 31 yo female BIB mother due to active suicidal ideation to jump out of the window or turn the gas on in her house when no one is home. She denies current ideation to harm herself, but continues to report severe depression and anxiety. She reports that she has panic attacks for which she was prescribed Xanax. She started Lexapro 3 days prior to being medically admitted w/ hypokalemia. +sleep/appetite disturbances +anhedonia + hopelessness. +low self esteem. She was admitted to the medicine unit for prolonged QTC and hypokalemia. She is agreeable to voluntary psychiatric admission at this time. In the ER: CW (JAY) spoke to pt's mother Shauan Roberts [phone] to obtain collateral information. As per pt.'s, mother, pt has been expressing active SI with a plan with to "jump out the window" and/or "turn on the gas." Pt's mother reported that pt has two children and she wants pt to get the help that she needs to improve her depression. Pt's mother stated that pt recently saw a therapist and she is scheduled to see a psychiatrist within two weeks. PMHx: H/o gastric bypass PPHx: She recently initiated psychiatric treatment at [facility] in [place], [place]; on Lexapro 10 mg PO Daily and Xanax PRN SHx: Completed 12th grade, some college; lives in an apt w/ her children. Denies drugs/etoh/cig. Laboratory Data: Abnormal Lab Results 05/04/17 05/04/17 06:00 06:00 WBC 10.1 RBC 4.88 Hgb 13.3 Hct 38.9 MCV 79.6 L MCH 27.3 MCHC 34.3 RDW 13.6 Plt Count 290 MPV 7.9 Neut % (Auto) 49.6 L Lymph % (Auto) 39.9 [place] % (Auto) 7.7 Eos % (Auto) 2.1 Baso % (Auto) 0.7 Neut # 5.0 Lymph # 4.0 [place] # 0.8 Eos # 0.2 Baso # 0.1 Sodium 136 Potassium 3.5 L Chloride 93 L Carbon Dioxide 34 H Anion Gap 13 BUN 10 Creatinine 0.8 Est GFR ( Amer) > 60 Est GFR (Non-Af Amer) > 60 Random Glucose 92 Calcium 9.6 Total Bilirubin 1.2 AST 30 ALT 58 H Alkaline Phosphatase 66 Total Protein 6.7 Albumin 3.6 Globulin 3.1 Albumin/Globulin Ratio 1.2 Consultations:: List each consultation separately and include: 1. Reason for request. 2. Findings. 3. Follow-up Consultations: Medicine consult appreciated, Cardiology consult appreciated Summary of Hospital Course include:: 1. Description of specific treatment plan utilized for patients during their course of treatmen. 2. Summarize the time- course for resolution of acute symptoms and/or regressed behaviors. 3. Describe issues identified and worked on during hospitalization. 4. Describe medication utilized. 5. Describe medical problems identified and treated. 6. Reassessment of suicide risk Summary of Hospital Course: Patient was admitted to the psychiatry unit. Individual and group therapy were provided. Patient was initially treated w/ Lexapro, but was later switched to Wellbutrin due to concerns that it may be worsening cardiac arrhythmia or hyponatremia (now improved). Patient was stabilized on Wellbutrin 75 mg PO Daily and Clonazepam 0.5 mg PO Q12 hr. Patient reports that her mood has improved and no longer reports suicidal ideation/plan/intent. Patient is psychiatrically stable for discharge w/ outpatient follow-up. Patient was treated by medicine and cardiology consults for hypokalemia and tachycardia. - Diagnosis (1) Major depressive disorder Current Visit: Yes Status: Acute (2) Generalized anxiety disorder with panic attacks Current Visit: Yes Status: Acute - Final Diagnosis (DSM 5) Condition upon Discharge: GOOD DSM 5: Major Depressive Disorder; Generalized Anxiety Disorder w/ Panic Attacks Disposition: HOME/ ROUTINE Follow-up Treatment Plan: Major Depressive Disorder; Generalized Anxiety Disorder w/ Panic attacks; patient is psychiatrically stable for discharge w/ outpatient follow-up. -Continue Wellbutrin 75 mg PO Daily -Continue Clonazepam 0.5 mg PO Q12 -Individual and group therapy -Medicine consult appreciated -Cardiology consult appreciated -Psychoeducation -Disposition planning- discharge w/ outpatient psychiatric and medical follow-up Prescriptions/Medication Reconciliation: buPROPion [Wellbutrin] 75 mg PO DAILY #30 tab clonazePAM [Klonopin] 0.5 mg PO Q12 #60 tab Famotidine [Pepcid] 20 mg PO DAILY #30 tab Metoprolol Succinate [Toprol XL] 25 mg PO DAILY #30 tab Potassium Chloride [K-Dur 20 mEq ER Tab] 20 meq PO DAILY #30 tab - Smoking Cessation Smoking Cessation Medication prescribed: No Reason for not providing: Not indicated - Antipsychotic Medications Pt discharged on 2 or more routine antipsychotic medications: No
== END 2017-05-04 15:50 | disposition home or self-care (01) | DRG 426 ==
LOC: H.STEP 15:45
PROVIDERS: ADMIT Psychiatry & Neurology Psychiatry; ATTEND Psychiatry & Neurology Psychiatry
PROC: GZHZZZZ Group Psychotherapy (ICD-10-PCS; principal; 2017-04-27)
DX: F32.9 Major depressive disorder, single episode, unspecified (principal); E87.1 Hypo-osmolality and hyponatremia; R45.851 Suicidal ideations; E87.6 Hypokalemia; F41.0 Panic disorder [episodic paroxysmal anxiety]; F41.1 Generalized anxiety disorder; Z98.84 Bariatric surgery status; Z68.34 Body mass index [BMI] 34.0-34.9, adult; I45.81 Long QT syndrome; R11.2 Nausea with vomiting, unspecified; I49.9 Cardiac arrhythmia, unspecified